=== PATIENT | female | born 1990 | race Caucasian/White ===

== ENCOUNTER 2016-08-19 19:35 | Emergency (ER) | payer OTHER ==
[~2016-08-19] VITALS: Ht 152.4 cm; Wt 70.0 kg
[~2016-08-19 19:35] MED LIST: AMOX1TAB43 PO
[2016-08-19 19:39] VITALS: BP 153/88; PULSE 135; TEMP 37; O2SAT 100; Ht 152.4 cm; Wt 70.0 kg
[2016-08-19] MEDS ORDERED: AZITHROMYCIN 250 MG TAB PO STA (20:12)
[2016-08-19] MEDS ORDERED: CEFTRIAXONE SOD 350MG/ML 1 GM VIAL IM STA (20:12)
--- NOTE | 2016-08-19 20:16 | EMERGENCY ROOM VISIT NOTE ---
History First contact with patient: 20:05 Chief Complaint: STD FEMALE Stated Complaint: STD History of Present Illness The patient is a 26 year old female who presents to the Emergency Room with complaints of STD exposure. The patient states her significant other was diagnosed with and treated for gonorrhea and chlamydia on Saturday. She states she has had vaginal discharge. She denies any fevers. She denies any abdominal pain. She denies any dysuria, urgency or frequency. She reports a history of Chlamydia approximately 5 years ago. She denies any other symptoms. Review of Systems A 10 system review of systems was completed with positives and pertinent negatives listed in the HPI. Past Medical/Surgical History Medical Problems: (1) Asthma, mild intermittent (2) Narcotic addiction Surgical Problems: (1) S/P tonsillectomy Family History Cancer Social History Smoking Status: Current Every Day Smoker Alcohol Use: none Drug Use: heroin, marijuana, other Marital Status: Housing Status: lives with family Occupation Status: employed Current/Historical Medications Scheduled Amoxicillin & Pot Clavulanate (Amoxicillin/Clavulanate P), 875 MG PO BIDM Allergies Coded Allergies: Apricot (Verified Allergy, Severe, 08/10/15) Cat Dander (Verified Allergy, Severe, ., 08/10/15) Apple (Verified Allergy, Intermediate, Swells from raw apples, 08/10/15) Physical Exam Vital Signs Date Time Temp Pulse Resp B/P Pulse Ox O2 Delivery O2 Flow Rate FiO2 08/19/16 19:39 37.0 135 18 153/88 100 Room Air Physical Exam VITALS: Vitals are noted on the nurse's note and reviewed by myself. Vital signs stable. GENERAL: This is a 26-year-old female, in no acute distress, nondiaphoretic, well-developed well-nourished. SKIN: The skin was without rashes, erythema, edema, or bruising. There is no tenting of the skin. Capillary reflex less than 2 seconds. HEAD: Normocephalic atraumatic. EARS: External ears are normal in appearance EYES: Pupils equal round and reactive to light and accommodation. Conjunctivae without injection, sclerae without icterus. Extraocular movements intact. NOSE: Patent, turbinates without inflammation or discharge. MOUTH: Mucous membranes moist. Tonsils are not enlarged. Pharynx without erythema or exudate. Uvula midline. Airway patent. Tongue does not deviate. NECK: Supple without nuchal rigidity. No lymphadenopathy. No thyromegaly. Cervical spine is nontender. No JVD. HEART: Regular rate and rhythm without murmurs gallops or rubs. LUNGS: Clear to auscultation bilaterally without wheezes, rales or rhonchi. No dullness to percussion. No retractions or accessory muscle use. ABDOMEN: Positive bowel sounds x 4. Soft, nontender, without masses or organomegaly. : The external genitalia is normal in appearance. There is copious whitest discharge. There is mild cervicitis.is no cervical motion tenderness. There is no adnexal mass or tenderness. MUSCULOSKELETAL: There is no Muscle atrophy, erythema, or edema noted. Full range of motion without joint tenderness in all extremities. No tenderness to palpation. Normal gait. Strength 5/5 throughout. NEURO: Patient was alert and oriented to person place and time. No focal neurological deficits. Medical Decision & Procedures Laboratory Results Test 08/19/16 20:15 Date/Time Source Procedure Growth Status 08/19/16 20:15 Vaginal Swab Trichomonas Preparation - Final Complete Medications Administered Medications (Trade) Dose Ordered Sig/Jared Route Start Time Stop Time Status Last Admin Dose Admin Azithromycin (Zithromax Tab) 1,000 mg NOW STAT PO 08/19/16 20:12 08/19/16 20:14 DC 08/19/16 20:28 1,000 MG Ceftriaxone Sodium (Rocephin Im) 250 mg NOW STAT IM 08/19/16 20:12 08/19/16 20:14 DC 08/19/16 20:28 250 MG ED Course The patient was seen and examined. She is afebrile. She is nontoxic in appearance. The patient has a known exposure to gonorrhea and chlamydia. She has copious whitest discharge on examination. Pelvic cultures were obtained. She will empirically be treated with 250 mg IM Rocephin and 1 g oral Zithromax. The patient does not have any cervical motion tenderness, adnexal tenderness or adnexal mass on examination. She was advised that we will contact her if the results of the cultures indicate a need for change in treatment. She should return to the ER with any worsening symptoms. Medical Decision DIFFERENTIAL DIAGNOSIS: Pelvic inflammatory disease, ovarian cyst, ovarian torsion, ovarian rupture, , ectopic , endometriosis, endometritis, urinary tract infection, ruptured ovarian cyst, tubo-ovarian abscess, among others. Impression Primary Impression: Exposure to STD Departure Information Dispostion Home / Self-Care Condition GOOD Referrals No Doctor, Assigned (PCP) Patient Instructions Chlamydia, ED Gonorrhea Female, My [facility] Additional Instructions We will contact you if the culture results indicate the need for change in treatment You may contact the emergency department [phone] to check on the culture results in 5-7 days Return with any worsening symptoms
[2016-08-23 01:11] LABS: CHLAMYDIA TRACH RNA*** NOT DETECTED (NOT DETECTED); GC (NEIS GONORRHOEAE)RNA** NOT DETECTED (NOT DETECTED)
== END 2016-08-19 20:48 | disposition home or self-care (01) ==
LOC: C.EDB 19:36 → C.EDD 20:48
DX: Z20.2 Contact with and (suspected) exposure to infections with a predominantly sexual mode of transmission (principal); N89.8 Other specified noninflammatory disorders of vagina; J45.20 Mild intermittent asthma, uncomplicated; F17.200 Nicotine dependence, unspecified, uncomplicated

== ENCOUNTER 2016-10-08 03:05 | Emergency (ER) | payer OTHER ==
[~2016-10-08] VITALS: Ht 149.9 cm; Wt 72.5 kg
[2016-10-08 03:07] VITALS: TEMP 37; Ht 149.9 cm; Wt 72.5 kg
[2016-10-08] MEDS ORDERED: GI COCKTAIL PO ONE (03:30)
[2016-10-08] MEDS ORDERED: PANTOprazole INJ 40 MG in SYRINGE 0 ML IV ONE (03:30)
[2016-10-08] MEDS ORDERED: SODIUM CHLORIDE 0.9% 1000ML 1,000 ML IV ONE (03:30)
[2016-10-08] MEDS ORDERED: LIDOCAINE HCL 2% VISC SOLN 20 ML UDC ONE (03:42)
[2016-10-08] MEDS ORDERED: ALUMINUM/MAGNESIUM SUSP 30 ML UDC ONE (03:42)
[2016-10-08] MEDS ORDERED: CALC500C3 PO (03:49)
[2016-10-08 03:55] LABS: BASO % 0.1 %; BASO ABS # 0.02 K/uL (0-0.2); COMPLETE YES; EOS % 2.3 %; HEMATOCRIT 41.1 % (37-47); IG% 0.2 %; LYMPH % 9.8 %; LYMPH ABS # 1.34 K/uL (1.2-3.4); MEAN CELL VOLUME 90.5 fL (80-100); MEAN CORPUSCULAR HEMOGLOBIN 30.4 pg (25-34); MEAN CORPUSCULAR HGB CONC 33.6 g/dl (32-36); MEAN PLATELET VOLUME 10.3 fL (7.4-10.4); MONO % 7.5 %; NEUT % 80.1 %; PLATELET COUNT 215 K/uL (130-400); RED BLOOD COUNT 4.54 M/uL (4.2-5.4); WHITE BLOOD COUNT 13.66 K/uL (4.8-10.8)
[2016-10-08 04:22] LABS: BUN/CREATININE RATIO 19.4 (10-20); CALCIUM 8.4 mg/dl (8.5-10.1); CREATININE 0.68 mg/dl (0.60-1.20); POTASSIUM 4.2 mmol/L (3.5-5.1)
[2016-10-08] MEDS ORDERED: KETOROLAC TROMETHAMINE 30 MG/ML VIAL IV STA (06:00)
[2016-10-08] MEDS ORDERED: ACETAMINOPHEN 500 MG TAB PO STA (06:00)
[2016-10-08 06:06] LABS: URINE APPEARANCE CLEAR (CLEAR); URINE BILIRUBIN NEG (NEG); URINE COLOR YELLOW; URINE NITRITE NEG (NEG); URINE SPECIFIC GRAVITY 1.014 (1.000-1.030); UROBILINOGEN NEG (NEG); ZZUR CULT IF INDIC CLEAN CATCH NO
[2016-10-08 06:16] LABS: MANUAL MICROSCOPIC REQUIRED? NO; REVIEW REQ? NO
[2016-10-08] MEDS ORDERED: CLINDAMYCIN HCL 150 MG CAP PO ONE (06:30)
[2016-10-08] MEDS ORDERED: PANT40TA PO (06:33)
--- NOTE | 2016-10-08 06:37 | DIAGNOSTIC IMAGING REPORT ---
BILIARY ULTRASOUND CLINICAL HISTORY: Epigastric pain. Elevated LFTs. COMPARISON STUDY: CT scan dated 07/29/2013 FINDINGS: The pancreas appear normal as visualized. The liver appear normal as visualized. There was no ductal dilatation. The common bile duct measured 4 mm. There is no right-sided hydronephrosis. No gallstones were visualized. There was a small amount of sludge within the gallbladder. IMPRESSION: Small amount of sludge in the gallbladder. No gallstones identified. No evidence of ductal dilatation. Electronically signed by: Philip Fox M.D. 10/08/2016 6:35 AM Dictated Date/Time: 10/08/2016 6:34 AM
[2016-10-08 06:39] VITALS: BP 108/68; PULSE 78; O2SAT 98
--- NOTE | 2016-10-08 06:46 | DIAGNOSTIC IMAGING REPORT ---
CHEST ONE VIEW PORTABLE CLINICAL HISTORY: Atypical chest pain and epigastric pain. COMPARISON STUDY: 10/29/2015 FINDINGS: The cardiac and mediastinal contours are normal. There is no evidence of focal pulmonary consolidation. There is no evidence of failure. No pleural effusions are visualized.[ No free intraperitoneal air is visualized. IMPRESSION: No active disease in the chest. Electronically signed by: Philip Fox M.D. 10/08/2016 6:44 AM Dictated Date/Time: 10/08/2016 6:44 AM
--- NOTE | 2016-10-09 08:33 | EMERGENCY ROOM VISIT NOTE ---
History First contact with patient: 03:14 Chief Complaint: OTHER COMPLAINT Stated Complaint: CHEST PAINS,SEVERE HEARTBURN,ACID REFLUX History of Present Illness The patient is a 26 year old female who presents to the Emergency Room with complaints of substernal chest pain radiating into her throat. The patient states that she had difficulty sleeping tonight because of her symptoms. She does have a history of GERD and has not taken anything [id number] for her symptoms. She has a family history of gallbladder disease, and is concerned that her symptoms may be related to this. Food and drink does worsen her symptoms. The patient rates her discomfort a 6/10. Additionally the patient was seen for an unrelated complaint here in the ER about 5 weeks ago. She had vaginal cultures at that time that did return with Gardnerella and Staph. We have been unable to get in touch with her, but she has a prescription for clindamycin at her pharmacy waiting for her to begin treatment. Review of Systems More than 10 systems were reviewed and otherwise negative with the exception of history of present illness. Past Medical/Surgical History Medical Problems: (1) Asthma, mild intermittent (2) Narcotic addiction Surgical Problems: (1) S/P tonsillectomy Family History Cancer Social History Smoking Status: Former Smoker Alcohol Use: none Drug Use: heroin, marijuana, other Marital Status: Housing Status: lives with family Occupation Status: employed Current/Historical Medications Scheduled Pantoprazole (Protonix), 40 MG PO DAILY Scheduled PRN Calcium Carbonate (Tums), 1-2 TABS PO UD PRN for Heartburn Allergies Coded Allergies: Apricot (Verified Allergy, Severe, 10/08/16) Cat Dander (Verified Allergy, Severe, ., 10/08/16) Apple (Verified Allergy, Intermediate, Swells from raw apples, 10/08/16) Physical Exam Vital Signs Date Time Temp Pulse Resp B/P Pulse Ox O2 Delivery O2 Flow Rate FiO2 10/08/16 06:39 78 18 108/68 98 Room Air 10/08/16 06:14 112 18 104/75 98 Room Air 10/08/16 06:00 116 18 116/65 95 Room Air 10/08/16 04:53 102 18 105/58 98 Room Air 10/08/16 03:07 37.0 111 20 121/81 97 Room Air Pain Rating (0-10): 2.0 Physical Exam VITALS: Vitals are noted on the nurse's note and reviewed by myself. Vital signs stable. GENERAL: Well-developed, well-nourished, white female, who is in no acute distress and resting comfortably. Patient is cooperative with the examination. HEAD: Normocephalic atraumatic. NECK: Supple without nuchal rigidity. No lymphadenopathy. No thyromegaly. Cervical spine is nontender. HEART: Regular rate and rhythm without murmurs gallops or rubs. LUNGS: Clear to auscultation bilaterally without wheezes, rales or rhonchi. No retractions or accessory muscle use. ABDOMEN: Positive normal bowel sounds x 4. Soft, nontender, without masses or organomegaly. No guarding or rebound tenderness. MUSCULOSKELETAL: No muscle atrophy, erythema, or edema noted. Full range of motion without joint tenderness in all extremities. Medical Decision & Procedures ER Provider Diagnostic Interpretation: CHEST ONE VIEW PORTABLE CLINICAL HISTORY: Atypical chest pain and epigastric pain. COMPARISON STUDY: 10/29/2015 FINDINGS: The cardiac and mediastinal contours are normal. There is no evidence of focal pulmonary consolidation. There is no evidence of failure. No pleural effusions are visualized.[ No free intraperitoneal air is visualized. IMPRESSION: No active disease in the chest. [~ rep ct add3]] BILIARY ULTRASOUND CLINICAL HISTORY: Epigastric pain. Elevated LFTs. COMPARISON STUDY: CT scan dated 07/29/2013 FINDINGS: The pancreas appear normal as visualized. The liver appear normal as visualized. There was no ductal dilatation. The common bile duct measured 4 mm. There is no right-sided hydronephrosis. No gallstones were visualized. There was a small amount of sludge within the gallbladder. IMPRESSION: Small amount of sludge in the gallbladder. No gallstones identified. No evidence of ductal dilatation. Laboratory Results 10/08/16 03:35 Red Blood Count 4.54, Mean Corpuscular Volume 90.5, Mean Corpuscular Hemoglobin 30.4, Mean Corpuscular Hemoglobin Concent 33.6, Mean Platelet Volume 10.3, Neutrophils (%) (Auto) 80.1, Lymphocytes (%) (Auto) 9.8, Monocytes (%) (Auto) 7.5, Eosinophils (%) (Auto) 2.3, Basophils (%) (Auto) 0.1, Neutrophils # (Auto) 10.94, Lymphocytes # (Auto) 1.34, Monocytes # (Auto) 1.02, Eosinophils # (Auto) 0.31, Basophils # (Auto) 0.02 10/08/16 03:35 Test 10/08/16 00:00 10/08/16 03:35 10/08/16 03:44 Urine Color YELLOW Urine Appearance CLEAR (CLEAR) Urine pH 5.0 (4.5-7.5) Urine Specific [place] 1.014 (1.000-1.030) Urine Protein NEG (NEG) Urine Glucose (UA) NEG (NEG) Urine Ketones NEG (NEG) Urine Occult Blood NEG (NEG) Urine Nitrite NEG (NEG) Urine Bilirubin NEG (NEG) Urine Urobilinogen NEG (NEG) Urine Leukocyte Esterase NEG (NEG) Urine Test NEG (NEG) White Blood Count 13.66 K/uL (4.8-10.8) Red Blood Count 4.54 M/uL (4.2-5.4) Hemoglobin 13.8 g/dL (12.0-16.0) Hematocrit 41.1 % (37-47) Mean Corpuscular Volume 90.5 fL (80-100) Mean Corpuscular Hemoglobin 30.4 pg (25-34) Mean Corpuscular Hemoglobin Concent 33.6 g/dl (32-36) Platelet Count 215 K/uL (130-400) Mean Platelet Volume 10.3 fL (7.4-10.4) Neutrophils (%) (Auto) 80.1 % Lymphocytes (%) (Auto) 9.8 % Monocytes (%) (Auto) 7.5 % Eosinophils (%) (Auto) 2.3 % Basophils (%) (Auto) 0.1 % Neutrophils # (Auto) 10.94 K/uL (1.4-6.5) Lymphocytes # (Auto) 1.34 K/uL (1.2-3.4) Monocytes # (Auto) 1.02 K/uL (0.11-0.59) Eosinophils # (Auto) 0.31 K/uL (0-0.5) Basophils # (Auto) 0.02 K/uL (0-0.2) RDW Standard Deviation 45.4 fL (36.4-46.3) RDW Coefficient of Variation 13.8 % (11.5-14.5) Immature Granulocyte % (Auto) 0.2 % Immature Granulocyte # (Auto) 0.03 K/uL (0.00-0.02) Anion Gap 10.0 mmol/L (3-11) Est Creatinine Clear Calc Drug Dose 108.7 ml/min Estimated GFR () 139.9 Estimated GFR (Non- 120.7 BUN/Creatinine Ratio 19.4 (10-20) Calcium Level 8.4 mg/dl (8.5-10.1) Total Bilirubin 0.3 mg/dl (0.2-1) Aspartate Amino Transf (AST/SGOT) 126 U/L (15-37) Alanine Aminotransferase (ALT/SGPT) 213 U/L (12-78) Alkaline Phosphatase 45 U/L (45-117) Total Protein 7.5 gm/dl (6.4-8.2) Albumin 3.8 gm/dl (3.4-5.0) Globulin 3.7 gm/dl (2.5-4.0) Albumin/Globulin Ratio 1.0 (0.9-2) Lipase 155 U/L (73-393) Bedside Troponin I 0.000 ng/ml (0-0.045) Medications Administered Medications (Trade) Dose Ordered Sig/Jared Route Start Time Stop Time Status Last Admin Dose Admin Pantoprazole Sodium 40 mg/ Syringe 10 ml @ 5 mls/min NOW ONCE IV 10/08/16 03:30 10/08/16 03:31 DC 10/08/16 03:55 5 MLS/MIN Sodium Chloride (Nss 1000ml) 1,000 ml @ 999 mls/hr Q1H1M ONCE IV 10/08/16 03:30 10/08/16 04:30 DC 10/08/16 03:54 999 MLS/HR Al Hydroxide/Mg Hydroxide (Maalox Susp) 30 ml STK-MED ONCE .ROUTE 10/08/16 03:42 10/08/16 03:45 DC 10/08/16 03:55 30 ML Lidocaine HCl (Viscous Lidocaine 2% Soln) 20 ml STK-MED ONCE .ROUTE 10/08/16 03:42 10/08/16 03:45 DC 10/08/16 03:55 20 ML Ketorolac Tromethamine (Toradol Inj) 30 mg NOW STAT IV 10/08/16 06:00 10/08/16 06:01 DC 10/08/16 06:15 30 MG Acetaminophen (Tylenol Tab) 1,000 mg NOW STAT PO 10/08/16 06:00 10/08/16 06:01 DC 10/08/16 06:15 1,000 MG Clindamycin HCl (Cleocin Cap) 300 mg NOW ONCE PO 10/08/16 06:30 10/08/16 06:31 DC 10/08/16 06:34 300 MG ED Course Physical exam and history were performed. Nursing notes and EMR were reviewed. Patient appears to have epigastric abdominal/substernal chest pain. IV access was established and labs were obtained. The patient was given a GI cocktail as well as IV Protonix. X-ray was performed. The patient blood work is as above and was reviewed. She does have a mildly elevated white blood cell count of 13,000. She is not significantly anemic. Her lipase is not diagnostic. Troponin x1 is negative. LFTs are elevated for the patient, and while the patient has had some elevated LFTs in the past, she has not had them elevated this level recently. Because of this I did elect to perform an ultrasound. The patient was then given additional pain medication. The patient ultrasound does show some sludge but no cholecystitis. On repeat abdominal exam the patient continued to be without significant tenderness. She did feel better after medication here in the department. Clinically I suspect that her presenting symptoms today are most related with GERD. Her elevated white blood cell count may be due to her vaginal vault infection. She was given clindamycin by mouth here in the department and instructions to pick out hand her antibiotic from the pharmacy this morning. The patient should follow with her primary care physician with any new, worsening, or concerning symptoms. She voiced understanding and rated her discomfort a 0/10 at the time of departure. The chart was completed utilizing [employer] Speech Voice Recognition Software. Grammatical errors, random word insertions, pronoun errors, and incomplete sentences are an occasional consequence of this system due to software limitations, ambient noise, and hardware issues. Any formal questions or concerns about the content, text, or information contained within the body of this dictation should be directly addressed to the provider for clarification. . Medical Decision Differential diagnosis: Etiologies such as appendicitis, diverticulitis, PUD, biliary pathology, UTI, pancreatitis, obstruction, mesenteric ischemia, aortic pathology, infections, inflammatory bowel disease, renal colic, as well as others were entertained. Impression Primary Impression: Epigastric abdominal pain Departure Information Dispostion Home / Self-Care Condition GOOD Prescriptions Pantoprazole (Protonix) 40 Mg Tab 40 MG PO DAILY for 14 Days, #14 TAB Prov: Garrett Nugent PA-C 10/08/16 Forms HOME CARE DOCUMENTATION FORM, IMPORTANT VISIT INFORMATION Patient Instructions My [facility] Additional Instructions You were seen and evaluated today on an emergency basis only. This is not a substitute for, or an effort to provide, complete comprehensive medical care. It is not possible to recognize and treat all injuries or illnesses in a single emergency department visit. For this reason it is recommended that you followup with your primary care physician this week for ongoing care and evaluation. Take Protonix 40 mg daily for the next 2 weeks. For baseline pain relief you may alternate ibuprofen and acetaminophen every 4 hours for pain control. Take 600 mg ibuprofen (Advil) and then 4 hours later take 1000 mg acetaminophen (Tylenol). Do not take more than 3000 mg acetaminophen in a single day. You have antibiotics at the pharmacy that we recommended you pick out hand today and begin. You are welcome to return to the emergency department anytime with new, worsening, or concerning symptoms.
== END 2016-10-08 06:43 | disposition home or self-care (01) ==
LOC: C.EDB 03:06 → C.EDA 06:43
DX: R07.89 Other chest pain (principal); R10.13 Epigastric pain; Z87.891 Personal history of nicotine dependence; F12.21 Cannabis dependence, in remission; K21.9 Gastro-esophageal reflux disease without esophagitis

== ENCOUNTER 2017-06-08 23:20 | Emergency (ER) | payer OTHER ==
[~2017-06-08] VITALS: Ht 149.9 cm; Wt 77.3 kg
[~2017-06-08 23:20] MED LIST changes: -AMOX1TAB43 PO; +CALC500C3 PO
[2017-06-08 23:25] VITALS: TEMP 37; Ht 149.9 cm; Wt 77.3 kg
[2017-06-08] MEDS ORDERED: LIDOCAINE/EPINEPH/TETRACAINE 1 EA SYR ONE (23:33)
[2017-06-08] MEDS ORDERED: LIDOCAINE HCL 1% 20 ML VIAL ONE (23:34)
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
[2017-06-09 00:57] VITALS: BP 126/80; PULSE 78; O2SAT 98
== END 2017-06-09 00:58 | disposition home or self-care (01) ==
LOC: C.EDB 23:21
DX: S01.81XA Laceration without foreign body of other part of head, initial encounter (principal); T74.11XA Adult physical abuse, confirmed, initial encounter; Y04.0XXA Assault by unarmed brawl or fight, initial encounter; Y07.03 Male partner, perpetrator of maltreatment and neglect; J45.20 Mild intermittent asthma, uncomplicated; F17.200 Nicotine dependence, unspecified, uncomplicated; Z90.89 Acquired absence of other organs

== ENCOUNTER 2021-03-13 06:14 | Inpatient (IN) ==
[2021-03-13] MEDS ORDERED: MULTI-VITAMIN INFUSION 10 ML, THIAMINE HCL 100 MG, FOLIC ACID 1 MG in SODIUM CHLORIDE 0... IV ONE (06:47)
[2021-03-13] MEDS ORDERED: LORazepam 2 MG/4 ML VIAL IV STA ×2 (06:47→09:52)
[2021-03-13] MEDS ORDERED: ONDANSETRON INJ 2 MG/ML 2 ML VIAL IV STA (06:47)
[2021-03-13] MEDS ORDERED: FAMOTIDINE 20MG IV PUSH 20 MG/5 ML SYR IV STA (06:47)
[2021-03-13] MEDS ORDERED: THIAMINE HCL 200 MG in SODIUM CHLORIDE 0.9% 50 ML IV STA (06:47)
--- NOTE | 2021-03-13 06:53 | Emergency Department Note ---
Impression & Plan Alcohol withdrawal, Alcoholic pancreatitis, Hypokalemia, Hypophosphatemia, Hypomagnesemia ED Provider Note NAME: FLAKO NOEL AGE: 30 SEX: F ARRIVES VIA: Walk-In INFORMANT: Patient, ED PROVIDER(S): Ja Alcaraz MD CHIEF COMPLAINT: Alcohol withdrawal, n/v. PLAN: Disposition: Admit. MEDICAL DECISION MAKING: The patient is a 30 y/o woman with a pmhx of alcohol dependence and h/o alcohol withdrawal who presents to the emergency department for evaluation and treatment of alcohol withdrawal. She reports her last drink was yesterday at 3pm and has been having nausea and vomiting that developed today. She reports she has been drinking heavily (1 liter of hard liquor daily) for the past two weeks after being sober for over a year. She reports she has been experiencing tremendous stress over the past six months and that this triggered her to turn to alcohol again. Prior to her withdrawal she denies recent illness including fever, cough, congestion. She denies urinary symptoms. On arrival the patient is uncomfortable and anxious but in NAD, AF, HR 160s and otherwise VSS. She appears clinically dry. She is moderately tremulous and diaphoretic. Abdomen with mild epigastric tenderness. EKG without overt acute ischemia. WBC, 11.3, nonspecific. H/H, platelets wnl. Chemistry with bicarb of 21 and Agap 16. Potassium 2.8, Mg 1.5 and phosphorus 1.9 with repletion initiated. INR wnl. LFTs elevated from baseline, nonspecific. Lipase 1500. UA with nitrites, WBC and bacteria, albeit with epithelial cells. Given no sx will defer treatment to admitting team. Etoh level 84. Covid-[address] abd/pelvis shows evidence of pancreatitis. Patient somewhat improved after repeat doses of IV ativan and antiemetics in addition to thiamine, IVF hydration with banana bag and D5 NSS for possible early component of alcoholic ketoacidosis given she reports minimal oral intake other than etoh for days. She agrees with plan for admission. Case was discussed with Bruce Hardy, with Bruce Cesar hospitalist who will evaluate the patient for admission. Triage Nursing notes reviewed and agree them. Prior medical records reviewed Vital Signs: reviewed and remarkable for tachycardia. Differential diagnosis: Overdose, toxicologic, infection, hypoglycemia, electrolyte abnormalities, cardiac sources, intracerebral event, neurologic, trauma, as well as other pathologies. ER treatment provided: See below. Diagnostics interpreted by me: ECG: Sinus tachycardia, 127 bpm, no ectopy, TWA, no overt ST elevation or depression. Cardiac Monitoring: An order for continuous cardiac monitoring was placed and demonstrated sinus tachycardia, 127 bpm, no ectopy. Laboratory studies: See below Imaging studies: See below Consultation(s): Bruce Hardy, with Dr. Ochoa [facility] hospitalist who will evaluate the patient for admission. HPI: The patient is a 30 y/o woman with a pmhx of alcohol dependence and h/o alcohol withdrawal who presents to the emergency department for evaluation and treatment of alcohol withdrawal. She reports her last drink was yesterday at 3pm and has been having nausea and vomiting that developed today. She reports she has been drinking heavily (1 liter of hard liquor daily) for the past two weeks after being sober for over a year. She reports she has been experiencing tremendous stress over the past six months and that this triggered her to turn to alcohol again. Prior to her withdrawal she denies recent illness including fever, cough, congestion. She denies urinary symptoms. ROS: See above HPI for pertinent positives & negatives. A total of 10 systems r eviewed and were otherwise negative. PAST MEDICAL HISTORY:See Below PAST SURGICAL HISTORY:See Below FAMILY HISTORY:See Below SOCIAL HISTORY:See Below HOME MEDICATIONS:See Below ALLERGIES:See Below VITALS:See Below PHYSICAL EXAMINATION: GENERAL: Awake, alert, uncomfortable/anxious-appearing, in no distress HENT: Normocephalic, atraumatic. Oropharynx dry/cracked mm. EYES: Normal conjunctiva. Sclera non-icteric. NECK: Supple. No nuchal rigidity. FROM. No JVD. RESPIRATORY: Clear to auscultation. CARDIAC: Tachycardic rate, normal rhythm. Extremities warm and well perfused. Pulses equal. ABDOMEN: Soft, non-distended. Mild epigastric tenderness to palpation. No rebound or guarding. No masses. RECTAL: Deferred. MUSCULOSKELETAL: Chest examination reveals no tenderness. The back is sym metrical on inspection without obvious abnormality. There is no CVA tenderness to palpation. No joint edema. LOWER EXTREMITIES: Calves are equal size bilaterally and non-tender. No edema. No discoloration. NEURO: No focal sensory or motor deficits noted. Moderately tremulous and diaphoretic. Intact finger to nose. SKIN: No rash or jaundice noted. ED COURSE: Critical Care: I have personally spent greater than 35 minutes of critical care time in the direct management of this patient. This includes bedside care, interpretation of diagnostic studies, and testing, discussion with consultants, patient, and family members, and other required patient management activities. This 35 minutes is in excess of all separately billable procedures. aJ Alcaraz MD Past Med/Surg History Medical History Alcohol abuse Asthma, mild intermittent Closed right ankle fracture Hepatitis C Narcotic addiction Surgical History S/P tonsillectomy Family History Mother Breast cancer Social History Smoking Status: Former smoker Tobacco Type: Cigarettes Hx Alcohol Use: Yes Alcohol type: hard liquor Hx Substance Use: Yes Preferred Language: Kazakh Communication Ability: Effective Beliefs That Will Affect Care: None Current Living Situation: Alone Other Information That Helps Us Care for You: No Feels Safe at Home: Yes Safety Concerns: Feels Safe At This Time Allergies Allergies Allergy/AdvReac Type Severity Reaction Status Date / Time apple Allergy Intermediate RAW Verified 03/13/21 06:55 APPLES--MOUTH SWELLS, ITCHY TONGUE, HIVES apricot Allergy Intermediate RAW Verified 03/13/21 06:55 APRICOTS--MOUTH SWELLS, ITCHY TONGUE, HIVES cat dander Allergy Intermediate MOUTH Verified 03/13/21 06:55 SWELLS, ITCHY TONGUE, HIVES Home Meds Home Medications Medication Instructions Recorded Confirmed No Known Home Medications 03/13/21 03/13/21 Results & Data (ED) Vital Signs Vital Signs - 24 hr 03/13/21 06:17 03/13/21 06:25 03/13/21 07:05 Temperature 36.8 C Temperature Source Temporal Artery Scan Pulse Rate 165 H Pulse Rate [Left Finger] 135 H Pulse Rhythm [Left Finger] Regular Pulse Strength [Left Finger] Normal Respiratory Rate 18 Respiratory Effort / Characteristics Non-Labored Spontaneous Respiratory Depth Normal Blood Pressure [Right Arm] 142/112 H Blood Pressure Mean [Right Arm] 122 Blood Pressure Position [Right Arm] Sitting Pulse Oximetry 96 99 97 Oxygen Delivery Method Room Air Room Air Room Air Sepsis Recent Fever Within 48 Hours No Sepsis New/Unexplained Change in Mental Status No Sepsis Action Taken by Nursing No Action Required 03/13/21 08:14 03/13/21 10:00 Temperature Temperature Source Pulse Rate Pulse Rate [Left Finger] 143 H 130 H Pulse Rhythm [Left Finger] Pulse Strength [Left Finger] Respiratory Rate 18 18 Respiratory Effort / Characteristics Respiratory Depth Blood Pressure [Right Arm] 136/87 129/87 Blood Pressure Mean [Right Arm] 103 101 Blood Pressure Position [Right Arm] Pulse Oximetry 97 98 Oxygen Delivery Method Room Air Room Air Sepsis Recent Fever Within 48 Hours Sepsis New/Unexplained Change in Mental Status Sepsis Action Taken by Nursing Laboratory Data Attestation: I reviewed the patient's lab results. Result diagrams: 03/13/21 16:53 03/13/21 16:53 Lab Results 03/13/21 03/13/21 03/13/21 Range/Units 06:40 06:40 06:40 WBC 11.34 H (4.8-10.8) K/uL RBC 5.09 (4.2-5.4) M/uL Hgb 15.8 (12.0-16.0) g/dL Hct 45.6 (37-47) % MCV 89.6 (80-100) fL MCH 31.0 (25-34) pg MCHC 34.6 (32-36) g/dL RDW Std Deviation 43.9 (36.4-46.3) fL RDW Coeff of Tatiana 13.3 (11.5-14.5) % Plt Count 199 (130-400) K/uL MPV 10.8 H (7.4-10.4) fL Immature Gran % (Auto) 0.2 % Neut % (Auto) 57.7 % Lymph % (Auto) 32.4 % Edmunds % (Auto) 7.0 % Eos % (Auto) 2.4 % Baso % (Auto) 0.3 % Neut # (Auto) 6.56 H (1.4-6.5) K/uL Lymph # (Auto) 3.67 H (1.2-3.4) K/uL Edmunds # (Auto) 0.79 H (0.11-0.59) K/uL Eos # (Auto) 0.27 (0-0.5) K/uL Baso # (Auto) 0.03 (0-0.2) K/uL Immature Gran # (Auto) 0.02 (0.00-0.02) K/uL PT (9.0-12.0) Seconds INR (0.9-1.1) Sodium 138 (136-145) mmol/L Potassium 2.8 L (3.5-5.1) mmol/L Chloride 101 (98-107) mmol/L Carbon Dioxide 21 (21-32) mmol/L Anion Gap 16.0 H (3-11) BUN 9 (7-18) mg/dl Creatinine 0.84 (0.6-1.2) mg/dl Est Cr Clr Drug Dosing 97.4 ml/min Est GFR ( Amer) 108.1 ml/min Est GFR (Non-Af Amer) 93.3 ml/min BUN/Creatinine Ratio 10.2 (10-20) Glucose 109 H (70-99) mg/dl Calcium 9.5 (8.5-10.1) mg/dl Phosphorus 1.9 L (2.5-4.9) mg/dl Magnesium 1.5 L (1.8-2.4) mg/dl Total Bilirubin 1.2 H (0.2-1) mg/dl Direct Bilirubin 0.3 H (0-0.2) mg/dl AST 199 H (15-37) U/L ALT 160 H (12-78) U/L Alkaline Phosphatase 64 (45-117) U/L Total Protein 7.7 (6.4-8.2) gm/dl Albumin 3.8 (3.4-5.0) gm/dl Globulin 3.9 (2.5-4.0) gm/dl Albumin/Globulin Ratio 1.0 (0.9-2) Lipase 1588 H (73-393) U/L HCG, Qual Negative (Negative) Urine Color Urine Appearance (Clear) Urine pH (4.5-7.5) Ur Specific [place] (1.000-1.030) Urine Protein (Negative) Urine Glucose (UA) (Negative) Urine Ketones (Negative) Urine Blood (Negative) Urine Nitrite (Negative) Urine Bilirubin (Negative) Urine Urobilinogen (Negative) Ur Leukocyte Esterase (Negative) Urine WBC (Auto) (0-5) /hpf Urine RBC (Auto) (0-4) /hpf U Hyaline Cast (Auto) (0-5) /lpf U Epithel Cells (Auto) (0-5) /lpf Urine Bacteria (Auto) (Negative) Granular Casts (0) /lpf Urine Opiates Screen (Neg) Ur Methadone, Qual (Neg) Urine Barbiturates (Neg) Ur Phencyclidine (PCP) (Neg) U Amphetamin/Meth Scrn (Neg) MDMA (Ecstasy) Screen (Neg) U Benzodiazepines Scrn (Neg) Ur Cocaine Metabolite (Neg) U Marijuana (THC) Screen (Neg) Ethyl Alcohol mg/dL (0-3) mg/dl COVID-19 Eval Order SARS-CoV-2 (PCR) (Negative) 03/13/21 03/13/21 03/13/21 Range/Units 06:40 07:04 07:04 WBC (4.8-10.8) K/uL RBC (4.2-5.4) M/uL Hgb (12.0-16.0) g/dL Hct (37-47) % MCV (80-100) fL MCH (25-34) pg MCHC (32-36) g/dL RDW Std Deviation (36.4-46.3) fL RDW Coeff of Tatiana (11.5-14.5) % Plt Count (130-400) K/uL MPV (7.4-10.4) fL Immature Gran % (Auto) % Neut % (Auto) % Lymph % (Auto) % Edmunds % (Auto) % Eos % (Auto) % Baso % (Auto) % Neut # (Auto) (1.4-6.5) K/uL Lymph # (Auto) (1.2-3.4) K/uL Edmunds # (Auto) (0.11-0.59) K/uL Eos # (Auto) (0-0.5) K/uL Baso # (Auto) (0-0.2) K/uL Immature Gran # (Auto) (0.00-0.02) K/uL PT 10.0 (9.0-12.0) Seconds INR 1.0 (0.9-1.1) Sodium (136-145) mmol/L Potassium (3.5-5.1) mmol/L Chloride (98-107) mmol/L Carbon Dioxide (21-32) mmol/L Anion Gap (3-11) BUN (7-18) mg/dl Creatinine (0.6-1.2) mg/dl Est Cr Clr Drug Dosing ml/min Est GFR ( Amer) ml/min Est GFR (Non-Af Amer) ml/min BUN/Creatinine Ratio (10-20) Glucose (70-99) mg/dl Calcium (8.5-10.1) mg/dl Phosphorus (2.5-4.9) mg/dl Magnesium (1.8-2.4) mg/dl Total Bilirubin (0.2-1) mg/dl Direct Bilirubin (0-0.2) mg/dl AST (15-37) U/L ALT (12-78) U/L Alkaline Phosphatase (45-117) U/L Total Protein (6.4-8.2) gm/dl Albumin (3.4-5.0) gm/dl Globulin (2.5-4.0) gm/dl Albumin/Globulin Ratio (0.9-2) Lipase (73-393) U/L HCG, Qual (Negative) Urine Color Urine Appearance (Clear) Urine pH (4.5-7.5) Ur Specific [place] (1.000-1.030) Urine Protein (Negative) Urine Glucose (UA) (Negative) Urine Ketones (Negative) Urine Blood (Negative) Urine Nitrite (Negative) Urine Bilirubin (Negative) Urine Urobilinogen (Negative) Ur Leukocyte Esterase (Negative) Urine WBC (Auto) (0-5) /hpf Urine RBC (Auto) (0-4) /hpf U Hyaline Cast (Auto) (0-5) /lpf U Epithel Cells (Auto) (0-5) /lpf Urine Bacteria (Auto) (Negative) Granular Casts (0) /lpf Urine Opiates Screen (Neg) Ur Methadone, Qual (Neg) Urine Barbiturates (Neg) Ur Phencyclidine (PCP) (Neg) U Amphetamin/Meth Scrn (Neg) MDMA (Ecstasy) Screen (Neg) U Benzodiazepines Scrn (Neg) Ur Cocaine Metabolite (Neg) U Marijuana (THC) Screen (Neg) Ethyl Alcohol mg/dL 84.0 H (0-3) mg/dl COVID-19 Eval Order Covid19 at [facility] SARS-CoV-2 (PCR) (Negative) 03/13/21 03/13/21 03/13/21 Range/Units 07:04 10:25 10:25 WBC (4.8-10.8) K/uL RBC (4.2-5.4) M/uL Hgb (12.0-16.0) g/dL Hct (37-47) % MCV (80-100) fL MCH (25-34) pg MCHC (32-36) g/dL RDW Std Deviation (36.4-46.3) fL RDW Coeff of Tatiana (11.5-14.5) % Plt Count (130-400) K/uL MPV (7.4-10.4) fL Immature Gran % (Auto) % Neut % (Auto) % Lymph % (Auto) % Edmunds % (Auto) % Eos % (Auto) % Baso % (Auto) % Neut # (Auto) (1.4-6.5) K/uL Lymph # (Auto) (1.2-3.4) K/uL Edmunds # (Auto) (0.11-0.59) K/uL Eos # (Auto) (0-0.5) K/uL Baso # (Auto) (0-0.2) K/uL Immature Gran # (Auto) (0.00-0.02) K/uL PT (9.0-12.0) Seconds INR (0.9-1.1) Sodium (136-145) mmol/L Potassium (3.5-5.1) mmol/L Chloride (98-107) mmol/L Carbon Dioxide (21-32) mmol/L Anion Gap (3-11) BUN (7-18) mg/dl Creatinine (0.6-1.2) mg/dl Est Cr Clr Drug Dosing ml/min Est GFR ( Amer) ml/min Est GFR (Non-Af Amer) ml/min BUN/Creatinine Ratio (10-20) Glucose (70-99) mg/dl Calcium (8.5-10.1) mg/dl Phosphorus (2.5-4.9) mg/dl Magnesium (1.8-2.4) mg/dl Total Bilirubin (0.2-1) mg/dl Direct Bilirubin (0-0.2) mg/dl AST (15-37) U/L ALT (12-78) U/L Alkaline Phosphatase (45-117) U/L Total Protein (6.4-8.2) gm/dl Albumin (3.4-5.0) gm/dl Globulin (2.5-4.0) gm/dl Albumin/Globulin Ratio (0.9-2) Lipase (73-393) U/L HCG, Qual (Negative) Urine Color [place] Urine Appearance Cloudy A (Clear) Urine pH 6.0 (4.5-7.5) Ur Specific [place] 1.021 (1.000-1.030) Urine Protein 2+ H (Negative) Urine Glucose (UA) Negative (Negative) Urine Ketones Trace H (Negative) Urine Blood Trace H (Negative) Urine Nitrite Positive A (Negative) Urine Bilirubin 1+ H (Negative) Urine Urobilinogen Negative (Negative) Ur Leukocyte Esterase 2+ H (Negative) Urine WBC (Auto) >30 H (0-5) /hpf Urine RBC (Auto) 0-4 (0-4) /hpf U Hyaline Cast (Auto) 10-30 H (0-5) /lpf U Epithel Cells (Auto) >30 H (0-5) /lpf Urine Bacteria (Auto) 1+ H (Negative) Granular Casts 1-5 H (0) /lpf Urine Opiates Screen Neg (Neg) Ur Methadone, Qual Neg (Neg) Urine Barbiturates Neg (Neg) Ur Phencyclidine (PCP) Neg (Neg) U Amphetamin/Meth Scrn Neg (Neg) MDMA (Ecstasy) Screen Neg (Neg) U Benzodiazepines Scrn Neg (Neg) Ur Cocaine Metabolite Neg (Neg) U Marijuana (THC) Screen Pos H (Neg) Ethyl Alcohol mg/dL (0-3) mg/dl COVID-19 Eval Order SARS-CoV-2 (PCR) NEGATIVE (Negative) Administered Medications Folic Acid (Folic Acid 1 Mg Tab) 1 mg PO QAM [facility] Stop: 04/12/21 13:03 Last Admin: 03/13/21 14:08 Dose: 1 mg Documented by: [id number] Gabapentin (Gabapentin 600 Mg Tab) 600 mg PO 06,1999 [facility] Stop: 03/14/21 06:01 Last Admin: 03/13/21 19:58 Dose: 600 mg Documented by: [id number] Pantoprazole Sodium 40 mg/ (Dextrose) 100 mls @ 20 mls/hr IV Q5H [facility] Stop: 04/12/21 13:14 Last Admin: 03/13/21 18:14 Dose: 8 mg/hr, 20 mls/hr Documented by: [id number] Infusion: 03/13/21 14:12 Dose: 0 mg/hr, 0 mls/hr Documented by: [id number] Admin: 03/13/21 14:07 Dose: 8 mg/hr, 20 mls/hr Documented by: [id number] Potassium Chloride 20 meq/ (Lactated Ringer's) 1,010 mls @ 200 mls/hr IV .Q5H3M [facility] Stop: 04/12/21 13:29 Last Admin: 03/13/21 19:58 Dose: 200 mls/hr Documented by: [id number] Infusion: 03/13/21 14:12 Dose: 0 mls/hr Documented by: [id number] Admin: 03/13/21 14:06 Dose: 200 mls/hr Documented by: [id number] Ceftriaxone Sodium 1,000 mg/ (Dextrose) 50 mls @ 100 mls/hr IV Q24H [facility]; Protocol Stop: 03/18/21 13:44 Last Infusion: 03/13/21 14:34 Dose: 0 mls/hr Documented by: [id number] Admin: 03/13/21 14:08 Dose: 100 mls/hr Documented by: [id number] Potassium Phosphate (Pot Phosphate Monobasic W/ Sod Tab) 1 tab PO QID [facility] Stop: 03/14/21 09:01 Last Admin: 03/13/21 20:00 Dose: 1 tab Documented by: [id number] Admin: 03/13/21 16:54 Dose: 1 tab Documented by: [id number] Admin: 03/13/21 14:07 Dose: 1 tab Documented by: [id number] Thiamine HCl (Thiamine Hcl 100 Mg Tab) 100 mg PO QAM [facility] Stop: 04/12/21 13:03 Last Admin: 03/13/21 14:08 Dose: 100 mg Documented by: [id number] Discontinued Medications Gabapentin (Gabapentin 1200mg Alcohol Withdrawal Load) 1 ea PO NOW STA; Protocol Stop: 03/13/21 12:36 Last Admin: 03/13/21 14:07 Dose: 1 ea Documented by: [id number] Gabapentin (Gabapentin 600 Mg Tab) 1,200 mg PO NOW ONE Stop: 03/13/21 13:05 Last Admin: 03/13/21 14:08 Dose: 1,200 mg Documented by: [id number] Multivitamins 10 ml/ Thiamine HCl 100 mg/ Folic Acid 1 mg/Sodium Chloride 1,011.2 mls @ 1,011.2 mls/hr IV .Q1H ONE Stop: 03/13/21 07:46 Last Infusion: 03/13/21 08:34 Dose: 0 mls/hr Documented by: [id number] Admin: 03/13/21 07:33 Dose: 1,011.2 mls/hr Documented by: [id number] Thiamine HCl 200 mg/ Sodium (Chloride) 52 mls @ 208 mls/hr IV NOW STA Stop: 03/13/21 07:01 Last Infusion: 03/13/21 08:00 Dose: 0 mls/hr Documented by: [id number] Admin: 03/13/21 07:33 Dose: 208 mls/hr Documented by: [id number] Famotidine (Pepcid 20mg Iv Push) 20 mg in 5 mls @ 2.5 mls/min IV NOW STA Stop: 03/13/21 06:48 Last Admin: 03/13/21 06:55 Dose: 2.5 mls/min Documented by: [id number] Lorazepam (Ativan) 2 mg in 4 mls @ 4 mls/min IV NOW STA Stop: 03/13/21 06:48 Last Admin: 03/13/21 06:58 Dose: 4 mls/min Documented by: [id number] Magnesium Sulfate/Dextrose (Magnesium Sulfate / D5w) 1 gm in 100 mls @ 100 mls/hr IV Q1H [facility] Stop: 03/13/21 11:50 Last Infusion: 03/13/21 13:15 Dose: 0 mls/hr Documented by: [id number] Admin: 03/13/21 11:45 Dose: 100 mls/hr Documented by: [id number] Infusion: 03/13/21 11:45 Dose: 100 mls/hr Documented by: [id number] Admin: 03/13/21 11:13 Dose: 100 mls/hr Documented by: [id number] Lorazepam (Ativan) 2 mg in 4 mls @ 4 mls/min IV NOW STA Stop: 03/13/21 09:53 Last Admin: 03/13/21 10:04 Dose: 4 mls/min Documented by: [id number] Dextrose/Sodium Chloride (D5w And Nss) 1,000 mls @ 999 mls/hr IV .Q1H1M [facility] Stop: 03/13/21 10:52 Last Infusion: 03/13/21 12:39 Dose: 0 mls/hr Documented by: [id number] Admin: 03/13/21 11:37 Dose: 999 mls/hr Documented by: [id number] Promethazine HCl (Phenergan) 25 mg in 51 mls @ 204 mls/hr IV NOW STA Stop: 03/13/21 10:07 Last Infusion: 03/13/21 10:37 Dose: 0 mls/hr Documented by: [id number] Admin: 03/13/21 10:21 Dose: 204 mls/hr Documented by: [id number] Potassium Chloride (K Jassi / Wtr) 10 meq in 100 mls @ 100 mls/hr IV Q1H [facility] Stop: 03/13/21 12:29 Last Infusion: 03/13/21 14:13 Dose: 0 mls/hr Documented by: [id number] Admin: 03/13/21 12:18 Dose: 100 mls/hr Documented by: [id number] Infusion: 03/13/21 12:17 Dose: 0 mls/hr Documented by: [id number] Admin: 03/13/21 11:14 Dose: 100 mls/hr Documented by: [id number] Pantoprazole Sodium (Protonix Bolus/Drip) 0 mls @ 1 mls/hr IV ONE STA Stop: 03/13/21 12:36 Last Infusion: 03/13/21 14:18 Dose: 0 mls/hr Documented by: [id number] Admin: 03/13/21 14:08 Dose: 1 mls/hr Documented by: [id number] Pantoprazole Sodium 80 mg/ (Dextrose) 120 mls @ 480 mls/hr IV TODAY@1300 [facility] Stop: 03/13/21 13:14 Last Infusion: 03/13/21 14:13 Dose: 0 mls/hr Documented by: [id number] Admin: 03/13/21 14:08 Dose: 480 mls/hr Documented by: [id number] Magnesium Sulfate/Dextrose (Magnesium Sulfate / D5w) 1 gm in 100 mls @ 50 mls/hr IV 1330 ONE Stop: 03/13/21 15:29 Last Infusion: 03/13/21 15:53 Dose: 0 mls/hr Documented by: [id number] Admin: 03/13/21 14:07 Dose: 50 mls/hr Documented by: [id number] Ioversol (Optiray 320 100ml) 94 ml IV ONCE ONE Stop: 03/13/21 10:45 Last Admin: 03/13/21 10:45 Dose: 94 ml Documented by: [id number] Ondansetron HCl (Ondansetron Inj 2 Mg/Ml 2 Ml Vial) 4 mg IV NOW STA Stop: 03/13/21 06:48 Last Admin: 03/13/21 06:55 Dose: 4 mg Documented by: [id number] Potassium Chloride (Potassium Chloride 20 Meq/15 Ml Udc) 40 meq PO NOW ONE Stop: 03/13/21 13:05 Last Admin: 03/13/21 14:08 Dose: 40 meq Documented by: [id number] Imaging Data Radiologist's Impression: Abdomen/Pelvis CT 03/13/21 09:51 CT SCAN OF THE ABDOMEN AND PELVIS WITH IV CONTRAST CLINICAL HISTORY: Epigastric abdominal pain. Pancreatitis. COMPARISON STUDY: Abdominal CT dated 07/29/2013. TECHNIQUE: Following the IV administration of 94 cc of Optiray 320, CT scan of the abdomen and pelvis is performed from the lung bases to the proximal femora. Images are reviewed in the axial, sagittal, and coronal planes. IV contrast was administered without complication. A dose lowering technique was utilized adhering to the principles of ALARA. CT DOSE: 815.25 mGycm FINDINGS: Lung bases: The heart is normal in size and without pericardial effusion. The lung bases are clear. Liver: The contrast-enhanced liver is mildly enlarged measuring 19 cm in length. The liver demonstrates diffusely diminished attenuation consistent with severe hepatic steatosis. There is no intrahepatic biliary ductal dilatation. The hep atic veins and portal veins are patent. Gallbladder: Unremarkable. Spleen: Normal in size and attenuation. Pancreas: The pancreas is normal in size and enhances homogeneously. Faint infiltration is suggested around the pancreatic head. The pancreatic duct is normal in caliber. No organized peripancreatic fluid collection is seen. The splenic vein is patent. Adrenal glands: Unremarkable. Kidneys: The contrast enhanced kidneys are normal in size and without hydronephr osis. The kidneys enhance symmetrically. Abdominal vasculature: The abdominal aorta is normal in course and caliber. Bowel: There is no bowel obstruction. The appendix is well-visualized and normal. Peritoneum: There is no intraperitoneal free air or abdominal ascites. There is a small fat-containing umbilical hernia. Lymphadenopathy: None. Pelvic viscera: The bladder is decompressed and not well evaluated. The uterus and adnexa are normal as visualized noting bilateral ovarian follicles. Skeletal structures: No lytic or blastic lesions are seen. IMPRESSION: 1. Findings suggest mild acute pancreatitis as clinically suspected. 2. The gland enhances homogeneously and there is no peripancreatic fluid collection. 3. Hepatomegaly and severe hepatic steatosis. 4. Additional findings as above. ACT 112: Negative or not required by law. Electronically signed by: Francisco Fraser M.D. 03/13/2021 11:02 AM Discharge Plan Visit Data Chief Complaint: Alcohol Withdrawal Stated Complaint: ALCOHOL WITHDRAWL ED Provider: Ja Alcaraz Discharge Problem: Alcohol withdrawal, Alcoholic pancreatitis, Hypokalemia, Hypophosphatemia, Hypomagnesemia Patient Disposition: Admitted As Inpatient Discharge Instructions Interventions: ED Discharge Assessment Last Done: 03/13/21 12:25 Discharge Problem: Alcohol withdrawal Qualifiers: Complication of substance-induced condition: with delirium Qualified Code(s): F10.231 - Alcohol dependence with withdrawal delirium Alcoholic pancreatitis Qualifiers: Chronicity: acute Acute pancreatitis complication: unspecified Qualified Code(s): K85.20 - Alcohol induced acute pancreatitis without necrosis or infection
[2021-03-13 07:01] LABS: Basophils # (auto) 0.03 K/uL (0-0.2); Basophils % (auto) 0.3 %; Eosinophils # (auto) 0.27 K/uL (0-0.5); Eosinophils % (auto) 2.4 %; Hematocrit (blood only) 45.6 % (37-47); Hemoglobin 15.8 g/dL (12.0-16.0); Immature Granulocytes # (auto) 0.02 K/uL (0.00-0.02); Immature Granulocytes % (auto) 0.2 %; Lymphocytes # (auto) 3.67 K/uL (1.2-3.4); Lymphocytes % (auto) 32.4 %; Mean Corpuscular Hgb Conc 34.6 g/dL (32-36); Mean Corpuscular Volume 89.6 fL (80-100); Mean Platelet Volume 10.8 fL (7.4-10.4); Monocytes # (auto) 0.79 K/uL (0.11-0.59); Neutrophils # (auto) 6.56 K/uL (1.4-6.5); Neutrophils % (auto) 57.7 %; Platelet Count 199 K/uL (130-400); RDW Coefficient of Variation 13.3 % (11.5-14.5); RDW Standard Deviation 43.9 fL (36.4-46.3); Red Blood Count 5.09 M/uL (4.2-5.4); White Blood Count 11.34 K/uL (4.8-10.8)
[2021-03-13 07:08] LABS: Albumin Level 3.8 gm/dl (3.4-5.0); BUN Creatinine Ratio 10.2 (10-20); Calcium 9.5 mg/dl (8.5-10.1); Creatinine Clr Calc Pharmacy 97.4 ml/min; Est GFR (African American) 108.1 ml/min; Est GFR (Non-African American) 93.3 ml/min; Magnesium 1.5 mg/dl (1.8-2.4); Potassium 2.8 mmol/L (3.5-5.1)
[2021-03-13 07:11] LABS: Bilirubin Direct 0.3 mg/dl (0-0.2); Bilirubin,Total 1.2 mg/dl (0.2-1); Globulin 3.9 gm/dl (2.5-4.0); Phosphorus 1.9 mg/dl (2.5-4.9); Total Protein 7.7 gm/dl (6.4-8.2)
[2021-03-13 07:20] LABS: Pregnancy Test, Serum Negative (Negative)
[2021-03-13] MEDS ORDERED: POTASSIUM CHLORIDE / WTR 20 MEQ/100 ML PLCT IV ONE (09:51)
[2021-03-13] MEDS ORDERED: D5W AND NSS 1,000 ML IV STA (09:52)
[2021-03-13] MEDS ORDERED: PROMETHAZINE 25 MG/51 ML BAG IV STA (09:53)
[2021-03-13 10:40] LABS: Appearance Urine Cloudy (Clear); Bacteria Urine Automated 1+ (Negative); Blood Urine Trace (Negative); Color Urine Orange; Epithelial Cell Urine Auto >30 /lpf (0-5); Glucose Urine UA Negative (Negative); Ketones Urine Trace (Negative); Leukocyte Esterase Urine 2+ (Negative); Nitrite Urine Positive (Negative); Protein Urine 2+ (Negative); Specific Gravity Urine 1.021 (1.000-1.030); Urobilinogen Urine Negative (Negative); WBC Urine Automated >30 /hpf (0-5)
[2021-03-13 10:41] LABS: Bilirubin Urine 1+ (Negative)
[2021-03-13] MEDS ORDERED: OPTIRAY 320 100ml IV ONE (10:44)
[2021-03-13 10:52] LABS: RBC Urine Automated 0-4 /hpf (0-4)
--- NOTE | 2021-03-13 11:03 | CT Scan Report ---
CT SCAN OF THE ABDOMEN AND PELVIS WITH IV CONTRAST CLINICAL HISTORY: Epigastric abdominal pain. Pancreatitis. COMPARISON STUDY: Abdominal CT dated 07/29/2013. TECHNIQUE: Following the IV administration of 94 cc of Optiray 320, CT scan of the abdomen and pelvi s is performed from the lung bases to the proximal femora. Images are reviewed in the axial, sagittal , and coronal planes. IV contrast was administered without complication. A dose lowering technique wa s utilized adhering to the principles of ALARA. CT DOSE: 815.25 mGycm FINDINGS: Lung bases: The heart is normal in size and without pericardial effusion. The lung bases are clear. Liver: The contrast-enhanced liver is mildly enlarged measuring 19 cm in length. The liver demonstrat es diffusely diminished attenuation consistent with severe hepatic steatosis. There is no intrahepati c biliary ductal dilatation. The hepatic veins and portal veins are patent. Gallbladder: Unremarkable. Spleen: Normal in size and attenuation. Pancreas: The pancreas is normal in size and enhances homogeneously. Faint infiltration is suggested around the pancreatic head. The pancreatic duct is normal in caliber. No organized peripancreatic flu id collection is seen. The splenic vein is patent. Adrenal glands: Unremarkable. Kidneys: The contrast enhanced kidneys are normal in size and without hydronephrosis. The kidneys enh ance symmetrically. Abdominal vasculature: The abdominal aorta is normal in course and caliber. Bowel: There is no bowel obstruction. The appendix is well-visualized and normal. Peritoneum: There is no intraperitoneal free air or abdominal ascites. There is a small fat-containin g umbilical hernia. Lymphadenopathy: None. Pelvic viscera: The bladder is decompressed and not well evaluated. The uterus and adnexa are normal as visualized noting bilateral ovarian follicles. Skeletal structures: No lytic or blastic lesions are seen. IMPRESSION: 1. Findings suggest mild acute pancreatitis as clinically suspected. 2. The gland enhances homogeneously and there is no peripancreatic fluid collection. 3. Hepatomegaly and severe hepatic steatosis. 4. Additional findings as above. ACT 112: Negative or not required by law. Electronically signed by: Francisco Fraser M.D. 03/13/2021 11:02 AM
[2021-03-13] MEDS: MAGNESIUM SULFATE / D5W 1 GM/100 ML BAG IV SCH ×2 (11:13→11:45)
[2021-03-13] MEDS: POTASSIUM CHLORIDE / WTR 10 MEQ/100 ML PLCT IV SCH ×2 (11:14→12:18)
[2021-03-13] MEDS ORDERED: PANTOPRAZOLE BOLUS/DRIP 1 EA IV STA (12:35)
[2021-03-13] MEDS ORDERED: GABAPENTIN 1200MG ALCOHOL WITHDRAWAL LOAD PO STA (12:35)
[2021-03-13] MEDS ORDERED: PANTOprazole 80 MG in DEXTROSE 5% 100 ML IV SCH (13:00)
[2021-03-13] MEDS ORDERED: PANTOprazole 80 MG in DEXTROSE 5% 100 ML IV ONE (13:04)
[2021-03-13] MEDS ORDERED: ATIVAN IV ALCOHOL WITHDRAWL IV PRN (13:04)
[2021-03-13] MEDS ORDERED: GABAPENTIN 600 MG TAB PO ONE (13:04)
[2021-03-13] MEDS ORDERED: LORazepam 3 MG/6 ML VIAL IV PRN (13:04)
[2021-03-13] MEDS ORDERED: PANTOprazole 40 MG in DEXTROSE 5% 100 ML IV SCH (13:04)
[2021-03-13] MEDS ORDERED: POTASSIUM CHLORIDE 20 MEQ/15 ML UDC PO ONE (13:04)
--- NOTE | 2021-03-13 13:06 | History & Physical Report ---
Date of Service March 13, 2021 Assessment & Plan (1) Alcohol withdrawal: Plan: -Admit to telemetry -Patient presenting from home with reports of alcohol withdrawal, vomiting -Longstanding history of alcohol abuse with periods of sobriety and binge drinking -Alcohol withdrawal protocol with gabapentin and IV Ativan -Thiamine, folic acid -Mental health consult (2) Alcoholic pancreatitis: Plan: -Lipase 1500, CT ABD/pelvis consistent with mild acute pancreatitis -N.p.o., IVF (3) GI bleed: Plan: -Patient reporting hematemesis and black stools -Hgb stable at 15.8 -Alcohol gastritis vs. ?? PUD -Fatty liver noted on CT however no cirrhosis, hold on octreotide for now -No history of EGD or colonoscopy -GI consult (4) Elevated LFTs: Plan: -T bili 1.2, AST 199, ALT 160, alk phos 64 -Likely due to underlying alcohol use -Trend LFTs (5) Hypokalemia: (6) Hypophosphatemia: (7) Hypomagnesemia: Plan: -Replace, follow electrolytes (8) Abnormal finding on urinalysis: Plan: -UA suggest possible UTI -Start IV ceftriaxone -Does not appear septic -Follow culture (9) Closed right ankle fracture: Plan: -History of right distal fibular fracture on 02/05 -Following with Ortho, maintain boot (10) DVT prophylaxis: Plan: -SCDs Admission and Anticipated Discharge Date Admission Date: March 13, 2021 History of Present Illness Chief Complaint: Alcohol withdrawal Primary Care Provider: Evin Hill MD 30-year-old female with PMH mild intermittent asthma, chronic hepatitis C, alcohol abuse, mood disorder, and other problems to below who presents to the ED for evaluation of alcohol withdrawal. Patient has a longstanding history of alcohol abuse with periods of sobriety and binge drinking. Patient reports she had been sober for the past 1 year however started drinking again 5 days ago. 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 She also reports a difficult relationship with her father. Over the past 5 days, patient reports she drank a bottle of cinnamon whiskey and several alcoholic sliders. Last drink was around 3 PM yesterday. Overnight, patient reports she developed persistent vomiting. She reports a small amount of hematemesis. She has had generalized abdominal pain. She also reports black stools. She has had a headache with episodes of diaphoresis and tremors. She denies chest pain and shortness of breath. No lightheadedness, dizziness, diaphoresis, syncopal events. She denies any other recent illnesses, fevers, chills. No urinary symptoms. In the ED, labs show several electrolyte abnormalities including K+ 2.8, Phos 1.9, MG +1.5. Elevated LFTs. Lipase 1500. UA suggestive of possible UTI. Alcohol level 84. CT ABD/pelvis shows mild acute pancreatitis. Patient was given IVF, IV famotidine, IV lorazepam 2 mg x 2 doses, banana bag, potassium and magnesium replacement. Allergies Allergy/AdvReac Type Severity Reaction Status Date / Time apple Allergy Intermediate RAW Verified 03/13/21 06:55 APPLES--MOUTH SWELLS, ITCHY TONGUE, HIVES apricot Allergy Intermediate RAW Verified 03/13/21 06:55 APRICOTS--MOUTH SWELLS, ITCHY TONGUE, HIVES cat dander Allergy Intermediate MOUTH Verified 03/13/21 06:55 SWELLS, ITCHY TONGUE, HIVES Home Medications Medication Instructions Recorded Confirmed Type No Known Home Medications 03/13/21 03/13/21 History Past Med/Surg History Medical History Alcohol abuse Asthma, mild intermittent Closed right ankle fracture Hepatitis C Narcotic addiction Surgical History S/P tonsillectomy Family History Mother Breast cancer Social History Smoking Status: Former smoker Tobacco Type: Cigarettes Hx Alcohol Use: Yes Alcohol type: hard liquor Hx Substance Use: Yes Preferred Language: Jamaican Communication Ability: Effective Beliefs That Will Affect Care: None Current Living Situation: Alone How many Children do You have: 1 Other Information That Helps Us Care for You: No Feels Safe at Home: Yes Safety Concerns: Feels Safe At This Time Assistive Devices: None Review of Systems Review of Systems: ROS per HPI, all other systems reviewed and negative Physical Exam Constitutional: WD/WN, vitals as above Eyes: PERRL, conjunctivae normal, anicteric sclerae ENMT: external ear and nose normal, oropharynx normal Respiratory: normal respiratory effort, lungs clear to auscultation Cardiovascular: Rate/Rhythm: regular rhythm and + tachycardic Vessels: normal peripheral pulses Extremities: no edema Gastrointestinal (Abdomen): Inspection/Auscultation: normal bowel sounds Percussion/Palpation: + abdomen tender (mild, RUQ) and abdomen soft; no hepatosplenomegaly Musculoskeletal: no cyanosis or clubbing, extremities motor strength 5/5 Skin: no rashes, warm and dry Neurologic: PERRL, EOMI, accommodation nl, no face palsy, no dysarthria Motor/Sensory: + tremor Psychiatric: Orientation: alert and oriented x 3 Affect: + anxious affect Results & Data Results & Data ([facility]) Vital Signs (Past 12 Hours) Vital Signs Temp Pulse Pulse Resp BP Pulse Ox 03/13/21 12:00 119 H 22 138/84 99 03/13/21 10:00 130 H 18 129/87 98 03/13/21 08:14 143 H 18 136/87 97 03/13/21 07:05 97 03/13/21 06:25 135 H 142/112 H 99 03/13/21 06:17 36.8 C 165 H 18 96 Laboratory Results Short CBC 03/13/21 Range/Units 06:40 WBC 11.34 H (4.8-10.8) K/uL Hgb 15.8 (12.0-16.0) g/dL Hct 45.6 (37-47) % Plt Count 199 (130-400) K/uL BMP 03/13/21 06:40 Sodium 138 Potassium 2.8 L Chloride 101 Carbon Dioxide 21 BUN 9 Creatinine 0.84 Glucose 109 H Calcium 9.5 Liver Function 03/13/21 Range/Units 06:40 Total Bilirubin 1.2 H (0.2-1) mg/dl Direct Bilirubin 0.3 H (0-0.2) mg/dl AST 199 H (15-37) U/L ALT 160 H (12-78) U/L Alkaline Phosphatase 64 (45-117) U/L Albumin 3.8 (3.4-5.0) gm/dl Urine 03/13/21 Range/Units 10:25 Urine Color [place] Urine Appearance Cloudy A (Clear) Urine pH 6.0 (4.5-7.5) Ur Specific [place] 1.021 (1.000-1.030) Urine Protein 2+ H (Negative) Urine Glucose (UA) Negative (Negative) Diagnostic Findings Abdomen/Pelvis CT 03/13/21 09:51 CT SCAN OF THE ABDOMEN AND PELVIS WITH IV CONTRAST CLINICAL HISTORY: Epigastric abdominal pain. Pancreatitis. COMPARISON STUDY: Abdominal CT dated 07/29/2013. TECHNIQUE: Following the IV administration of 94 cc of Optiray 320, CT scan of the abdomen and pelvis is performed from the lung bases to the proximal femora. Images are reviewed in the axial, sagittal, and coronal planes. IV contrast was administered without complication. A dose lowering technique was utilized adhering to the principles of ALARA. CT DOSE: 815.25 mGycm FINDINGS: Lung bases: The heart is normal in size and without pericardial effusion. The lung bases are clear. Liver: The contrast-enhanced liver is mildly enlarged measuring 19 cm in length. The liver demonstrates diffusely diminished attenuation consistent with severe hepatic steatosis. There is no intrahepatic biliary ductal dilatation. The hepatic veins and portal veins are patent. Gallbladder: Unremarkable. Spleen: Normal in size and attenuation. Pancreas: The pancreas is normal in size and enhances homogeneously. Faint infiltration is suggested around the pancreatic head. The pancreatic duct is normal in caliber. No organized peripancreatic fluid collection is seen. The splenic vein is patent. Adrenal glands: Unremarkable. Kidneys: The contrast enhanced kidneys are normal in size and without hydronephrosis. The kidneys enhance symmetrically. Abdominal vasculature: The abdominal aorta is normal in course and caliber. Bowel: There is no bowel obstruction. The appendix is well-visualized and normal. Peritoneum: There is no intraperitoneal free air or abdominal ascites. There is a small fat-containing umbilical hernia. Lymphadenopathy: None. Pelvic viscera: The bladder is decompressed and not well evaluated. The uterus and adnexa are normal as visualized noting bilateral ovarian follicles. Skeletal structures: No lytic or blastic lesions are seen. IMPRESSION: 1. Findings suggest mild acute pancreatitis as clinically suspected. 2. The gland enhances homogeneously and there is no peripancreatic fluid collection. 3. Hepatomegaly and severe hepatic steatosis. 4. Additional findings as above. ACT 112: Negative or not required by law. Electronically signed by: Francisco Fraser M.D. 03/13/2021 11:02 AM Code Status & VTE Plan VTE Prophylaxis Plan VTE Prophylaxis will be ordered: Yes Supervising Physician Co-Signing Physician Notes Patient was seen and examined on 03/13/2021. Patient was somnolent could not provide me any relevant history. Patient had a sitter at bedside. Hemodynamically patient is doing okay. I performed a history and physical examination of the patient on 03/14/21, including specifically H&P. I have discussed the patient's management with the advanced practitioner. Please refer to the Glenda Gant note for the documented findings and plan of care.
[2021-03-13] MEDS ORDERED: MAGNESIUM SULFATE / D5W 1 GM/100 ML BAG IV ONE (13:30)
[2021-03-13 13:34] LABS: Amphetamines+Metham, Urine Neg (Neg); Barbiturates, Urine Neg (Neg); Benzodiazepine, Urine Neg (Neg); Cocaine, Urine Neg (Neg); MDMA (Ecstacy), Urine Neg (Neg); Methadone, Urine Neg (Neg); Opiate, Urine Neg (Neg); Phencyclidine, Urine Neg (Neg)
[2021-03-13] MEDS ORDERED: cefTRIAXone SODIUM 1,000 MG in DEXTROSE 5% 50 ML IV SCH (13:45)
--- NOTE | 2021-03-13 13:47 | Gastrointestinal Consultation ---
Date of Consultation March 13, 2021 Assessment & Plan (1) Alcohol withdrawal: (2) Alcoholic pancreatitis: (3) Alcohol abuse: (4) Hepatitis C: (5) Elevated LFTs: (6) GI bleed: Pt is a 30 y/o female currently with ETOH intoxication/withdrawal, reported blood specks on emesis and black stools. Noted pancreatitis likely from ETOH abuse and also elevated LFTs, suspect ETOH hepatitis. She also carries hx of HCV Labs showed she may be a bit on dry side with normal blood ct and normal BUN. Maddrey Discriminant Function score <32 - PPI gtt - NPO - LR IVF support - Electrolyte correction per primary team - Monitor for s/s of GI bleeding; call GI if hematemesis, melena - Strict ETOH cessation; consider inpt rehab once stable - ETOH withdrawal protocol - Symptomatic management with antiemetics and analgesics prn Supervising Physician Co-Signing Physician Notes patient is currently oriented to person, place, time, benign abdominal exam. Labs reviewed sig for ast 199/alt 160/lipase 1588 Concerns for pancreatitis based on lipase elevation and imaging with findings also of fatty liver on imaging presumably from etoh use +/- weight. She is not voicing any pain to me currently and wants to rest. Agree with further plan of care as per April's plan. History of Present Illness Reason for Consultation: ETOH pancreatitis, ? GI bleed Requesting Physician: Dr. Onesimo Ram Attending Physician: Dr. Priscila Costa History of Present Illness Pt is a 30 y/o female w PMH mild intermittent asthma, chronic hepatitis C, alcohol abuse, mood disorder who presented wo ED today for ETOH withdrawals. She is currently intoxicated, admitted to drink 1/2 gallon of [place] daily. Been through counseling and [facility] x 5. She reports having abd pain, n/v. Emesis greenish w red spots ? blood. Stools black this AM. She denies any fever, chills, CP SOB. on evaluation, noted labs include several electrolyte imbalance, elevated LFTs and lipase, ETOH level 84. CT abd/pelvis showed signs of hepatomegaly, hepatic steatosis, acute pancreatitis w/o peripancreatic fluid collection. On exam, she appears disinterested in conversing with me, making jokes and doesn't seem coherent. Allergies Allergy/AdvReac Type Severity Reaction Status Date / Time apple Allergy Intermediate RAW Verified 03/13/21 06:55 APPLES--MOUTH SWELLS, ITCHY TONGUE, HIVES apricot Allergy Intermediate RAW Verified 03/13/21 06:55 APRICOTS--MOUTH SWELLS, ITCHY TONGUE, HIVES cat dander Allergy Intermediate MOUTH Verified 03/13/21 06:55 SWELLS, ITCHY TONGUE, HIVES Home Medications Medication Instructions Recorded Confirmed Type No Known Home Medications 03/13/21 03/13/21 History Patient History Medical History Alcohol abuse Asthma, mild intermittent Closed right ankle fracture Hepatitis C Narcotic addiction Surgical History S/P tonsillectomy Family History Mother Breast cancer Social History Smoking Status: Former smoker Tobacco Type: Cigarettes Hx Alcohol Use: Yes Alcohol type: hard liquor Hx Substance Use: Yes Preferred Language: Turkmen Communication Ability: Effective Beliefs That Will Affect Care: None Current Living Situation: Alone Other Information That Helps Us Care for You: No Feels Safe at Home: Yes Safety Concerns: Feels Safe At This Time Review of Systems Review of Systems: All systems reviewed & are unremarkable except as noted in HPI & below Physical Exam Constitutional: WD/WN, vitals as above + intoxicated appearing Eyes: PERRL, conjunctivae normal, anicteric sclerae ENMT: external ear and nose normal, oropharynx normal Respiratory: normal respiratory effort, lungs clear to auscultation Cardiovascular: RRR, no murmur, no edema Gastrointestinal (Abdomen): normal bowel sounds, soft, nontender, no hepatosplenomegaly Skin: no rashes, warm and dry no jaundice Psychiatric: A+Ox3, euthymic affect Lymphatic: no lymphedema Results & Data ([facility]) Vital Signs (Past 12 Hours) Vital Signs Temp Pulse Pulse Resp BP Pulse Ox 03/13/21 13:26 36.5 C 139 H 18 139/76 95 03/13/21 12:00 119 H 22 138/84 99 03/13/21 10:00 130 H 18 129/87 98 03/13/21 08:14 143 H 18 136/87 97 03/13/21 07:05 97 03/13/21 06:25 135 H 142/112 H 99 03/13/21 06:17 36.8 C 165 H 18 96
[2021-03-13] MEDS: POTASSIUM CHLORIDE 20 MEQ in LACTATED RINGER'S 1,000 ML IV SCH ×2 (14:06→19:58)
[2021-03-13] MEDS: POT PHOSPHATE MONOBASIC W/ SOD TAB PO SCH ×3 (14:07→20:00)
[2021-03-13] MEDS: PANTOprazole 40 MG in DEXTROSE 5% 100 ML IV SCH ×3 (14:07→23:19)
[2021-03-13] MEDS: FOLIC ACID 1 MG TAB PO SCH (14:08)
[2021-03-13] MEDS: THIAMINE HCL 100 MG TAB PO SCH (14:08)
[2021-03-13 17:11] LABS: Hematocrit (blood only) 39.7 % (37-47); Hemoglobin 12.9 g/dL (12.0-16.0)
[2021-03-13] MEDS: GABAPENTIN 600 MG TAB PO SCH (19:58)
--- NOTE | 2021-03-13 22:16 | Electrocardiogram Report ---
Test Reason : Blood Pressure : / mmHG Vent. Rate : 127 BPM Atrial Rate : 127 BPM P-R Int : 000 ms QRS Dur : 080 ms QT Int : 304 ms P-R-T Axes : 000 073 035 degrees QTc Int : 442 ms Sinus tachycardia T wave abnormality, consider inferolateral ischemia Abnormal ECG When compared with ECG of 30-JAN-2020 22:13, Nonspecific T wave abnormality, worse in Anterolateral leads Confirmed by Byron Dewitt ([id number]) on 03/13/2021 10:15:33 PM Referred By: REFERRED SELF Confirmed By:Byron Dewitt
[2021-03-13] MEDS: LORazepam 2 MG/4 ML VIAL IV PRN (22:38)
[2021-03-13 23:22] LABS: Hematocrit (blood only) 37.9 % (37-47); Hemoglobin 12.5 g/dL (12.0-16.0)
[2021-03-14] MEDS: POTASSIUM CHLORIDE 20 MEQ in LACTATED RINGER'S 1,000 ML IV SCH ×5 (00:42→19:43)
[2021-03-14] MEDS: PANTOprazole 40 MG in DEXTROSE 5% 100 ML IV SCH ×4 (04:20→19:27)
[2021-03-14] MEDS: GABAPENTIN 600 MG TAB PO SCH ×3 (06:26→21:05)
[2021-03-14 07:38] LABS: Hemoglobin 11.7 g/dL (12.0-16.0); Mean Corpuscular Hemoglobin 30.5 pg (25-34); Mean Corpuscular Hgb Conc 32.5 g/dL (32-36); Mean Corpuscular Volume 93.8 fL (80-100); Mean Platelet Volume 11.1 fL (7.4-10.4); Platelet Count 102 K/uL (130-400); RDW Coefficient of Variation 13.6 % (11.5-14.5); RDW Standard Deviation 46.4 fL (36.4-46.3); Red Blood Count 3.84 M/uL (4.2-5.4); White Blood Count 4.87 K/uL (4.8-10.8)
[2021-03-14 08:10] LABS: Albumin Level 2.6 gm/dl (3.4-5.0); BUN Creatinine Ratio 12.4 (10-20); Calcium 8.1 mg/dl (8.5-10.1); Creatinine Clr Calc Pharmacy 155.6 ml/min; Est GFR (African American) 146.8 ml/min; Est GFR (Non-African American) 126.6 ml/min; Magnesium 1.6 mg/dl (1.8-2.4); Potassium 4.1 mmol/L (3.5-5.1)
[2021-03-14 08:14] LABS: Albumin Globulin Ratio 0.9 (0.9-2); Bilirubin,Total 1.5 mg/dl (0.2-1); Globulin 2.8 gm/dl (2.5-4.0); Phosphorus 3.6 mg/dl (2.5-4.9); Total Protein 5.4 gm/dl (6.4-8.2)
[2021-03-14] MEDS: FOLIC ACID 1 MG TAB PO SCH (08:23)
[2021-03-14] MEDS: POT PHOSPHATE MONOBASIC W/ SOD TAB PO SCH (08:23)
[2021-03-14] MEDS: THIAMINE HCL 100 MG TAB PO SCH (08:23)
[2021-03-14] MEDS: ACETAMINOPHEN 325 MG TAB PO PRN ×2 (08:25→19:26)
[2021-03-14] MEDS: LORazepam 1 MG/2 ML VIAL IV PRN ×3 (08:26→21:19)
--- NOTE | 2021-03-14 08:49 | Gastroenterology Progress Note ---
Date of Service March 14, 2021 Assessment & Plan (1) GI bleed: Plan: 30 year old female admitted w/ ETOH intoxication/withdrawal, reported blood specks on emesis and black stools. No further evidence of GI bleeding overnight and HGB stable. CT suggests acute pancreatitis likely from ETOH abuse and also elevated LFTs, suspect ETOH hepatitis. She also carries hx of HCV [facility] Discriminant Function score <32 - Trend HGB - Monitor for s/s of GI bleeding - Can continue PPI gtt until bag runs dry - Then IV PPI BID x 48 hours then PO PPI 40 mg twice daily x 1 month then once daily thereafter - NPO - LR IVF support 150/200mL/hr - Electrolyte correction per primary team - Symptomatic management with antiemetics and analgesics prn - Can trial sips/chips once pain is better controlled - Strict ETOH cessation; consider inpt rehab once stable - ETOH withdrawal protocol - Recall GI as needed for any acute signs of GI bleed or worrisome drop in HGB. Thank you for allowing us to participate in the care of this patient. Please call with any acute changes, questions or concerns. Please see addendum below with additional recommendation from my supervising physician. Admission and Anticipated Discharge Date Admission Date: March 13, 2021 Supervising Physician Co-Signing Physician Notes AST bump but still think this is from alcohol use PE essentiall unchanged Agree with further plan of care as per Lexi's plan of care. Subjective Pt was seen and evaluated this AM She is OOB ambulating to commode with nursing staff Reports continued generalized pains "entire body" Notes headache, abd pain and severe lower pelvic "uterus" pain Also reports urinary symptoms No nausea/vomiting or evidence of black/bloody stools overnight. HGB stable BUN normal LFTs relatively stable overnight No new COAG studies this AM Review of Systems Review of Systems: All systems reviewed & are unremarkable except as noted in HPI & below Physical Exam 2 Constitutional: WD/WN, vitals as above Neck: normal visual inspection and trachea midline; no tracheal deviation Respiratory: normal respiratory effort and able to speak in complete sentences; no respiratory distress, no labored breathing, no cough and no audible wheezes Cardiovascular: Rate/Rhythm: regular rhythm and + tachycardic Extremities: no edema Gastrointestinal (Abdomen): Percussion/Palpation: + abdomen tender; no guarding, abdomen not rigid and + abdomen not soft Skin: no rashes, warm and dry Results & Data ([facility]) Vital Signs (Past 12 Hours) Vital Signs Temp Pulse Pulse Resp BP Pulse Ox 03/14/21 07:17 36.7 C 114 H 20 123/82 94 03/14/21 03:27 36.9 C 110 H 18 120/80 96 03/14/21 00:13 117 H 03/13/21 22:48 36.6 C 111 H 16 112/77 97 Laboratory Results 03/14/21 03/14/21 03/13/21 Range/Units 07:04 07:04 23:06 WBC 4.87 (4.8-10.8) K/uL RBC 3.84 L (4.2-5.4) M/uL Hgb 11.7 L 12.5 (12.0-16.0) g/dL Hct 36.0 L 37.9 (37-47) % MCV 93.8 (80-100) fL MCH 30.5 (25-34) pg MCHC 32.5 (32-36) g/dL RDW Std Deviation 46.4 H (36.4-46.3) fL RDW Coeff of Tatiana 13.6 (11.5-14.5) % Plt Count 102 L (130-400) K/uL MPV 11.1 H (7.4-10.4) fL PT (9.0-12.0) Seconds INR (0.9-1.1) Sodium 138 (136-145) mmol/L Potassium 4.1 (3.5-5.1) mmol/L Chloride 109 H (98-107) mmol/L Carbon Dioxide 25 (21-32) mmol/L Anion Gap 5.0 (3-11) BUN 7 (7-18) mg/dl Creatinine 0.54 L D (0.6-1.2) mg/dl Est Cr Clr Drug Dosing 155.6 ml/min Est GFR ( Amer) 146.8 ml/min Est GFR (Non-Af Amer) 126.6 ml/min BUN/Creatinine Ratio 12.4 (10-20) Glucose 79 (70-99) mg/dl Calcium 8.1 L (8.5-10.1) mg/dl Phosphorus 3.6 D (2.5-4.9) mg/dl Magnesium 1.6 L (1.8-2.4) mg/dl Total Bilirubin 1.5 H (0.2-1) mg/dl AST 291 H (15-37) U/L ALT 155 H (12-78) U/L Alkaline Phosphatase 43 L (45-117) U/L Total Protein 5.4 L D (6.4-8.2) gm/dl Albumin 2.6 L (3.4-5.0) gm/dl Globulin 2.8 (2.5-4.0) gm/dl Albumin/Globulin Ratio 0.9 (0.9-2) Lipase 325 (73-393) U/L Urine Color Urine Appearance (Clear) Urine pH (4.5-7.5) Ur Specific [place] (1.000-1.030) Urine Protein (Negative) Urine Glucose (UA) (Negative) Urine Ketones (Negative) Urine Blood (Negative) Urine Nitrite (Negative) Urine Bilirubin (Negative) Urine Urobilinogen (Negative) Ur Leukocyte Esterase (Negative) Urine WBC (Auto) (0-5) /hpf Urine RBC (Auto) (0-4) /hpf U Hyaline Cast (Auto) (0-5) /lpf U Epithel Cells (Auto) (0-5) /lpf Urine Bacteria (Auto) (Negative) Granular Casts (0) /lpf Urine Opiates Screen (Neg) Ur Methadone, Qual (Neg) Urine Barbiturates (Neg) Ur Phencyclidine (PCP) (Neg) U Amphetamin/Meth Scrn (Neg) MDMA (Ecstasy) Screen (Neg) U Benzodiazepines Scrn (Neg) Ur Cocaine Metabolite (Neg) U Marijuana (THC) Screen (Neg) U Marijuana THC Carboxy Drug Screen Comment 03/13/21 03/13/21 03/13/21 Range/Units 16:53 16:53 10:25 WBC (4.8-10.8) K/uL RBC (4.2-5.4) M/uL Hgb 12.9 (12.0-16.0) g/dL Hct 39.7 (37-47) % MCV (80-100) fL MCH (25-34) pg MCHC (32-36) g/dL RDW Std Deviation (36.4-46.3) fL RDW Coeff of Tatiana (11.5-14.5) % Plt Count (130-400) K/uL MPV (7.4-10.4) fL PT (9.0-12.0) Seconds INR (0.9-1.1) Sodium (136-145) mmol/L Potassium 4.7 D (3.5-5.1) mmol/L Chloride (98-107) mmol/L Carbon Dioxide (21-32) mmol/L Anion Gap (3-11) BUN (7-18) mg/dl Creatinine (0.6-1.2) mg/dl Est Cr Clr Drug Dosing ml/min Est GFR ( Amer) ml/min Est GFR (Non-Af Amer) ml/min BUN/Creatinine Ratio (10-20) Glucose (70-99) mg/dl Calcium (8.5-10.1) mg/dl Phosphorus (2.5-4.9) mg/dl Magnesium (1.8-2.4) mg/dl Total Bilirubin (0.2-1) mg/dl AST (15-37) U/L ALT (12-78) U/L Alkaline Phosphatase (45-117) U/L Total Protein (6.4-8.2) gm/dl Albumin (3.4-5.0) gm/dl Globulin (2.5-4.0) gm/dl Albumin/Globulin Ratio (0.9-2) Lipase (73-393) U/L Urine Color Urine Appearance (Clear) Urine pH (4.5-7.5) Ur Specific [place] (1.000-1.030) Urine Protein (Negative) Urine Glucose (UA) (Negative) Urine Ketones (Negative) Urine Blood (Negative) Urine Nitrite (Negative) Urine Bilirubin (Negative) Urine Urobilinogen (Negative) Ur Leukocyte Esterase (Negative) Urine WBC (Auto) (0-5) /hpf Urine RBC (Auto) (0-4) /hpf U Hyaline Cast (Auto) (0-5) /lpf U Epithel Cells (Auto) (0-5) /lpf Urine Bacteria (Auto) (Negative) Granular Casts (0) /lpf Urine Opiates Screen (Neg) Ur Methadone, Qual (Neg) Urine Barbiturates (Neg) Ur Phencyclidine (PCP) (Neg) U Amphetamin/Meth Scrn (Neg) MDMA (Ecstasy) Screen (Neg) U Benzodiazepines Scrn (Neg) Ur Cocaine Metabolite (Neg) U Marijuana (THC) Screen (Neg) U Marijuana THC Carboxy Pending Drug Screen Comment Pending 03/13/21 03/13/21 03/13/21 Range/Units 10:25 10:25 06:40 WBC (4.8-10.8) K/uL RBC (4.2-5.4) M/uL Hgb (12.0-16.0) g/dL Hct (37-47) % MCV (80-100) fL MCH (25-34) pg MCHC (32-36) g/dL RDW Std Deviation (36.4-46.3) fL RDW Coeff of Tatiana (11.5-14.5) % Plt Count (130-400) K/uL MPV (7.4-10.4) fL PT 10.0 (9.0-12.0) Seconds INR 1.0 (0.9-1.1) Sodium (136-145) mmol/L Potassium (3.5-5.1) mmol/L Chloride (98-107) mmol/L Carbon Dioxide (21-32) mmol/L Anion Gap (3-11) BUN (7-18) mg/dl Creatinine (0.6-1.2) mg/dl Est Cr Clr Drug Dosing ml/min Est GFR ( Amer) ml/min Est GFR (Non-Af Amer) ml/min BUN/Creatinine Ratio (10-20) Glucose (70-99) mg/dl Calcium (8.5-10.1) mg/dl Phosphorus (2.5-4.9) mg/dl Magnesium (1.8-2.4) mg/dl Total Bilirubin (0.2-1) mg/dl AST (15-37) U/L ALT (12-78) U/L Alkaline Phosphatase (45-117) U/L Total Protein (6.4-8.2) gm/dl Albumin (3.4-5.0) gm/dl Globulin (2.5-4.0) gm/dl Albumin/Globulin Ratio (0.9-2) Lipase (73-393) U/L Urine Color [place] Urine Appearance Cloudy A (Clear) Urine pH 6.0 (4.5-7.5) Ur Specific [place] 1.021 (1.000-1.030) Urine Protein 2+ H (Negative) Urine Glucose (UA) Negative (Negative) Urine Ketones Trace H (Negative) Urine Blood Trace H (Negative) Urine Nitrite Positive A (Negative) Urine Bilirubin 1+ H (Negative) Urine Urobilinogen Negative (Negative) Ur Leukocyte Esterase 2+ H (Negative) Urine WBC (Auto) >30 H (0-5) /hpf Urine RBC (Auto) 0-4 (0-4) /hpf U Hyaline Cast (Auto) 10-30 H (0-5) /lpf U Epithel Cells (Auto) >30 H (0-5) /lpf Urine Bacteria (Auto) 1+ H (Negative) Granular Casts 1-5 H (0) /lpf Urine Opiates Screen Neg (Neg) Ur Methadone, Qual Neg (Neg) Urine Barbiturates Neg (Neg) Ur Phencyclidine (PCP) Neg (Neg) U Amphetamin/Meth Scrn Neg (Neg) MDMA (Ecstasy) Screen Neg (Neg) U Benzodiazepines Scrn Neg (Neg) Ur Cocaine Metabolite Neg (Neg) U Marijuana (THC) Screen Pos H (Neg) U Marijuana THC Carboxy Drug Screen Comment
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
--- NOTE | 2021-03-14 13:03 | Hospitalist Progress Note ---
Date of Service March 14, 2021 Assessment & Plan (1) Alcohol withdrawal: Plan: -Patient presenting from home with reports of alcohol withdrawal, vomiting -Longstanding history of alcohol abuse with periods of sobriety and binge drinking -Continue alcohol withdrawal protocol with gabapentin and IV Ativan -Thiamine, folic acid -Mental health consult. Patient reports she has been admitted to rehab previously. Las ttime was back in June 2020. Patient is interested in rehab. (2) Alcoholic pancreatitis: Plan: -Lipase 1500, CT ABD/pelvis consistent with mild acute pancreatitis -Continue IV fluids. Sips and chips for now. Start on clear liquid diet if patient tolerates. (3) GI bleed: Plan: -Patient reporting hematemesis and black stools -Hgb at 15.8 on admission, today at 11.7. Small component of dilution as well. Appreciate gastroenterology input. No further episodes of bleeding. Continue with sips and chips. Clear liquid diet if patient tolerates. Continue with PPI gtt. Continue CBC twice daily. (4) Elevated LFTs: Plan: -T bili 1.2>>1.5, AST 199>>291, ALT 160>>155, alk phos 64>>43 -Likely due to underlying alcohol use. Continue monitor daily LFTs. (5) Hypokalemia: Plan: resolved (6) Hypophosphatemia: Plan: resolved (7) Hypomagnesemia: Plan: -Replace, follow electrolytes (8) Abnormal finding on urinalysis: Plan: -UA suggest possible UTI. cultures negative thus far. d.c ceftriaxone. (9) Closed right ankle fracture: Plan: -History of right distal fibular fracture on 02/05 -Following with Ortho, maintain boot. (10) DVT prophylaxis: Plan: -SCDs Admission and Anticipated Discharge Date Admission Date: March 13, 2021 Subjective Patient was awake, alert and oriented x3 this morning. Reports significant upper abdominal pain that radiates to the back. Reports feeling nauseous but no vomiting. Denies any headache, dizziness, tremors, hallucinations, chest pain, or dysuria. Reports she does feel hungry. Review of Systems Review of Systems: All systems reviewed & are unremarkable except as noted in HPI & below Physical Exam Physical Exam: General: A&Ox3 HENT: NCAT, MMM, EOMI Eyes: PERRLA Neck: Supple, normal range of motion CVS: normal rate and rhythm Resp: b/l good breath sounds Abdomen: Soft, ND/NT, +BS Extremities: Right foot boot in place Neuro: face symmetric, , no focal deficit Skin: warm and dry, no rashes/lesions/errythema MSK: normal ROM, no joint swelling/erythema Results & Data Results & Data ([facility]) Vital Signs (Past 12 Hours) Vital Signs Temp Pulse Resp BP Pulse Ox 03/14/21 10:49 36.6 C 108 H 19 124/80 94 03/14/21 07:17 36.7 C 114 H 20 123/82 94 03/14/21 03:27 36.9 C 110 H 18 120/80 96 (1) Alcohol withdrawal Complication of substance-induced condition: with delirium Qualified Code(s): F10.231 - Alcohol dependence with withdrawal delirium (2) Alcoholic pancreatitis Acute pancreatitis complication: unspecified Chronicity: acute Qualified Code(s): K85.20 - Alcohol induced acute pancreatitis without necrosis or infection
[2021-03-14] MEDS: NICOTINE 14 MG/24 HR PATCH TD SCH (14:05)
[2021-03-14] MEDS: LORazepam 2 MG/4 ML VIAL IV PRN (19:26)
[2021-03-14] MEDS: cefTRIAXone SODIUM 2,000 MG in DEXTROSE 5% 50 ML IV SCH (22:16)
[2021-03-15] MEDS: LORazepam 1 MG/2 ML VIAL IV PRN ×5 (00:16→21:40)
[2021-03-15] MEDS: PANTOprazole 40 MG in DEXTROSE 5% 100 ML IV SCH ×5 (00:22→20:46)
[2021-03-15] MEDS: POTASSIUM CHLORIDE 20 MEQ in LACTATED RINGER'S 1,000 ML IV SCH ×5 (00:54→21:26)
[2021-03-15] MEDS: ACETAMINOPHEN 325 MG TAB PO PRN ×2 (02:04→07:34)
[2021-03-15] MEDS: LORazepam 2 MG/4 ML VIAL IV PRN ×3 (03:34→09:38)
[2021-03-15] MEDS: oxyCODONE HCL IR 5 MG TAB (IMMEDIATE RELEASE) PO PRN ×5 (03:34→21:40)
[2021-03-15] MEDS: GABAPENTIN 600 MG TAB PO SCH ×2 (06:23→20:04)
[2021-03-15 06:25] LABS: Pregnancy Test, Urine Negative (Negative)
[2021-03-15 06:44] LABS: Hemoglobin 11.9 g/dL (12.0-16.0); Mean Corpuscular Hemoglobin 30.2 pg (25-34); Mean Corpuscular Hgb Conc 33.1 g/dL (32-36); Mean Corpuscular Volume 91.4 fL (80-100); RDW Coefficient of Variation 13.2 % (11.5-14.5); RDW Standard Deviation 44.2 fL (36.4-46.3); Red Blood Count 3.94 M/uL (4.2-5.4); White Blood Count 4.88 K/uL (4.8-10.8)
[2021-03-15 06:50] LABS: Prothrombin Time 10.1 Seconds (9.0-12.0)
[2021-03-15 07:07] LABS: Mean Platelet Volume 10.9 fL (7.4-10.4); Platelet Count 94 K/uL (130-400); Platelet Estimate Decreased (Normal)
[2021-03-15 07:12] LABS: Alanine Aminotransferase 293 U/L (12-78); Albumin Level 2.9 gm/dl (3.4-5.0); Aspartate Aminotransferase 548 U/L (15-37); BUN Creatinine Ratio 7.6 (10-20); Blood Urea Nitrogen 4 mg/dl (7-18); Calcium 8.4 mg/dl (8.5-10.1); Carbon Dioxide 26 mmol/L (21-32); Chloride 106 mmol/L (98-107); Creatinine Clr Calc Pharmacy 179.2 ml/min; Est GFR (African American) > 150.0 ml/min; Est GFR (Non-African American) 132.5 ml/min; Glucose 73 mg/dl (70-99); Magnesium 1.6 mg/dl (1.8-2.4); Potassium 3.7 mmol/L (3.5-5.1); Sodium 138 mmol/L (136-145)
[2021-03-15 07:20] LABS: Alkaline Phosphatase 47 U/L (45-117); Bilirubin,Total 0.7 mg/dl (0.2-1); Total Protein 5.9 gm/dl (6.4-8.2)
[2021-03-15] MEDS: NICOTINE 14 MG/24 HR PATCH TD SCH (07:39)
[2021-03-15] MEDS: FOLIC ACID 1 MG TAB PO SCH (07:39)
[2021-03-15] MEDS: THIAMINE HCL 100 MG TAB PO SCH (07:40)
--- NOTE | 2021-03-15 10:18 | Hospitalist Progress Note ---
Date of Service March 15, 2021 Assessment & Plan (1) Alcohol withdrawal: Plan: -Patient presenting from home with reports of alcohol withdrawal, vomiting -Longstanding history of alcohol abuse with periods of sobriety and binge drinking -Continue alcohol withdrawal protocol with gabapentin and IV Ativan -Thiamine, folic acid -Mental health consult. Patient reports she has been admitted to rehab previously. Las ttime was back in June 2020. Patient is interested in rehab. (2) Alcoholic pancreatitis: Plan: -Lipase 1500, CT ABD/pelvis consistent with mild acute pancreatitis -Continue IV fluids. Sips and chips for now. Start on clear liquid diet if patient tolerates. (3) GI bleed: Plan: -Patient reporting hematemesis and black stools -Hgb at 15.8 on admission, current 11.9 (but stable from yesterday). Some component of dilution as well. Appreciate Gastroenterology input. No further episodes of bleeding. Continue with sips and chips. Clear liquid diet if patient tolerates. Continue with PPI gtt. Continue to monitor CBC closely (4) Elevated LFTs: Plan: EtOH hepatitis -T bili 1.2>>1.5, AST 199>>291> 500s, ALT 160>>155> 293, alk phos 64>>43 -Likely due to underlying alcohol use. Continue monitor daily LFTs. - GI consulted (5) Hypokalemia: Plan: resolved (6) Hypophosphatemia: Plan: resolved (7) Hypomagnesemia: Plan: -Replace, follow electrolytes (8) Abnormal finding on urinalysis: Plan: -UA suggest possible UTI. cont, ceftriaxone. Follow cultx (9) Closed right ankle fracture: Plan: -History of right distal fibular fracture on 02/05 -Following with Ortho, maintain boot. (10) DVT prophylaxis: Plan: -SCDs Admission and Anticipated Discharge Date Admission Date: March 13, 2021 Subjective Pt seen in follow up of etoh withdrawal, RUQ abd. pain Laying in bed in NAD reports visual hallucinations, requiring ativan no chest pain, shortness of breath, fever, chills Review of Systems Review of Systems: All systems reviewed & are unremarkable except as noted in Subjective Physical Exam Physical Exam: General: A&Ox3, young F in NAD HEENT: NCAT, MMM, EOMI, PERRL Neck: Supple, normal range of motion CVS: + tachycardic, HR 100s Resp: b/l good breath sounds Abdomen: Soft, +BS, tender to palp at RUQ and RLQ Extremities: Right foot boot in place Neuro: face symmetric, speech fluent, moves extremities Skin: warm and dry, no rashes/lesions/erythema MSK: normal ROM, R LE as above Results & Data Results & Data ([facility]) Vital Signs (Past 12 Hours) Vital Signs Temp Pulse Pulse Resp BP Pulse Ox 03/15/21 07:54 101 H 03/15/21 06:06 36.4 C L 105 H 20 125/88 03/15/21 04:05 36.8 C 100 H 18 117/78 97 03/15/21 03:36 104 H 03/15/21 02:00 36.9 C 112 H 12 124/86 99 03/15/21 00:06 36.8 C 113 H 19 113/70 96 03/14/21 22:28 36.3 C L 108 H 16 137/94 99 Laboratory Results 03/15/21 03/15/21 03/15/21 Range/Units 06:16 06:16 06:16 WBC 4.88 (4.8-10.8) K/uL RBC 3.94 L (4.2-5.4) M/uL Hgb 11.9 L (12.0-16.0) g/dL Hct 36.0 L (37-47) % MCV 91.4 (80-100) fL MCH 30.2 (25-34) pg MCHC 33.1 (32-36) g/dL RDW Std Deviation 44.2 (36.4-46.3) fL RDW Coeff of Tatiana 13.2 (11.5-14.5) % Plt Count 94 L (130-400) K/uL MPV 10.9 H (7.4-10.4) fL Platelet Estimate Decreased L (Normal) PT 10.1 (9.0-12.0) Seconds INR 1.0 (0.9-1.1) Sodium 138 (136-145) mmol/L Potassium 3.7 (3.5-5.1) mmol/L Chloride 106 (98-107) mmol/L Carbon Dioxide 26 (21-32) mmol/L Anion Gap 6.0 (3-11) BUN 4 L (7-18) mg/dl Creatinine 0.47 L (0.6-1.2) mg/dl Est Cr Clr Drug Dosing 179.2 ml/min Est GFR ( Amer) > 150.0 ml/min Est GFR (Non-Af Amer) 132.5 ml/min BUN/Creatinine Ratio 7.6 L (10-20) Glucose 73 (70-99) mg/dl Calcium 8.4 L (8.5-10.1) mg/dl Phosphorus 4.0 (2.5-4.9) mg/dl Magnesium 1.6 L (1.8-2.4) mg/dl Total Bilirubin 0.7 D (0.2-1) mg/dl AST 548 H (15-37) U/L ALT 293 H (12-78) U/L Alkaline Phosphatase 47 (45-117) U/L Total Protein 5.9 L (6.4-8.2) gm/dl Albumin 2.9 L (3.4-5.0) gm/dl Globulin 3.0 (2.5-4.0) gm/dl Albumin/Globulin Ratio 1.0 (0.9-2) Urine Test (Negative) 03/15/21 Range/Units 06:10 WBC (4.8-10.8) K/uL RBC (4.2-5.4) M/uL Hgb (12.0-16.0) g/dL Hct (37-47) % MCV (80-100) fL MCH (25-34) pg MCHC (32-36) g/dL RDW Std Deviation (36.4-46.3) fL RDW Coeff of Tatiana (11.5-14.5) % Plt Count (130-400) K/uL MPV (7.4-10.4) fL Platelet Estimate (Normal) PT (9.0-12.0) Seconds INR (0.9-1.1) Sodium (136-145) mmol/L Potassium (3.5-5.1) mmol/L Chloride (98-107) mmol/L Carbon Dioxide (21-32) mmol/L Anion Gap (3-11) BUN (7-18) mg/dl Creatinine (0.6-1.2) mg/dl Est Cr Clr Drug Dosing ml/min Est GFR ( Amer) ml/min Est GFR (Non-Af Amer) ml/min BUN/Creatinine Ratio (10-20) Glucose (70-99) mg/dl Calcium (8.5-10.1) mg/dl Phosphorus (2.5-4.9) mg/dl Magnesium (1.8-2.4) mg/dl Total Bilirubin (0.2-1) mg/dl AST (15-37) U/L ALT (12-78) U/L Alkaline Phosphatase (45-117) U/L Total Protein (6.4-8.2) gm/dl Albumin (3.4-5.0) gm/dl Globulin (2.5-4.0) gm/dl Albumin/Globulin Ratio (0.9-2) Urine Test Negative (Negative) Medications Administered Current Inpatient Medications Acetaminophen (Acetaminophen 325 Mg Tab) 650 mg PO Q4H PRN PRN Reason: Pain or Fever Stop: 04/12/21 13:03 Last Admin: 03/15/21 07:34 Dose: 650 mg Documented by: Folic Acid (Folic Acid 1 Mg Tab) 1 mg PO QAM [facility] Stop: 04/12/21 13:03 Last Admin: 03/15/21 07:39 Dose: 1 mg Documented by: Gabapentin (Gabapentin 600 Mg Tab) 600 mg PO Q12H [facility] Stop: 03/16/21 06:01 Gabapentin (Gabapentin 600 Mg Tab) 600 mg PO Q24H [facility] Stop: 03/17/21 06:01 Pantoprazole Sodium 40 mg/ (Dextrose) 100 mls @ 20 mls/hr IV Q5H [facility] Stop: 04/12/21 13:14 Last Admin: 03/15/21 05:27 Dose: 8 mg/hr, 20 mls/hr Documented by: Lorazepam (Ativan) 1 mg in 2 mls @ 2 mls/min IV UD PRN; Protocol PRN Reason: EtOH Withdrawl AWSS Score 6,7 Stop: 04/12/21 13:03 Last Admin: 03/15/21 02:03 Dose: 2 mls/min Documented by: Lorazepam (Ativan) 2 mg in 4 mls @ 4 mls/min IV UD PRN; Protocol PRN Reason: EtOH Withdrawl AWSS Score 8,9 Stop: 04/12/21 13:03 Last Admin: 03/15/21 09:38 Dose: 4 mls/min Documented by: Lorazepam (Ativan) 3 mg in 6 mls @ 4 mls/min IV ONCE PRN; Protocol PRN Reason: EtOH Withdrawl AWSS Score >=10 Stop: 04/12/21 13:03 Potassium Chloride 20 meq/ (Lactated Ringer's) 1,010 mls @ 200 mls/hr IV .Q5H3M [facility] Stop: 04/12/21 13:29 Last Admin: 03/15/21 06:06 Dose: 200 mls/hr Documented by: Ceftriaxone Sodium 2,000 mg/ (Dextrose) 70 mls @ 140 mls/hr IV Q24H [facility]; Protocol Stop: 03/19/21 21:29 Last Infusion: 03/14/21 22:57 Dose: Infused Documented by: Miscellaneous (Remove Nicoderm Patch) 1 ea N/A DAILY@0859 [facility] Stop: 04/14/21 08:58 Last Admin: 03/14/21 22:53 Dose: 1 ea Documented by: Nicotine (Nicotine 14 Mg/24 Hr Patch) 14 mg TD [facility] Stop: 04/13/21 13:59 Last Admin: 03/15/21 07:39 Dose: 14 mg Documented by: Oxycodone HCl (Oxycodone Hcl Ir 5 Mg Tab (Immediate Release)) 5 mg PO Q4H PRN PRN Reason: Pain Stop: 03/29/21 03:00 Last Admin: 03/15/21 07:34 Dose: 5 mg Documented by: Thiamine HCl (Thiamine Hcl 100 Mg Tab) 100 mg PO [facility] Stop: 04/12/21 13:03 Last Admin: 03/15/21 07:40 Dose: 100 mg Documented by: (1) Alcohol withdrawal Complication of substance-induced condition: with delirium Qualified Code(s): F10.231 - Alcohol dependence with withdrawal delirium (2) Alcoholic pancreatitis Acute pancreatitis complication: unspecified Chronicity: acute Qualified Code(s): K85.20 - Alcohol induced acute pancreatitis without necrosis or infection
[2021-03-15] MEDS ORDERED: MAGNESIUM SULFATE / D5W 1 GM/100 ML BAG IV ONE (10:30)
[2021-03-15] MEDS: cefTRIAXone SODIUM 2,000 MG in DEXTROSE 5% 50 ML IV SCH (21:26)
[2021-03-15 22:06] LABS: Marijuana Quant, GCMS Urine 50 ng/mL (<5)
[2021-03-16] MEDS: PANTOprazole 40 MG in DEXTROSE 5% 100 ML IV SCH ×3 (01:54→11:57)
[2021-03-16] MEDS: oxyCODONE HCL IR 5 MG TAB (IMMEDIATE RELEASE) PO PRN ×5 (01:54→20:05)
[2021-03-16] MEDS: POTASSIUM CHLORIDE 20 MEQ in LACTATED RINGER'S 1,000 ML IV SCH ×4 (03:49→23:31)
[2021-03-16] MEDS ORDERED: LORazepam 0.5 MG TAB PO STA (05:11)
[2021-03-16] MEDS: GABAPENTIN 600 MG TAB PO SCH (05:32)
[2021-03-16 05:46] LABS: Hemoglobin 12.6 g/dL (12.0-16.0); Mean Corpuscular Hemoglobin 30.3 pg (25-34); Mean Corpuscular Hgb Conc 32.3 g/dL (32-36); Mean Corpuscular Volume 93.8 fL (80-100); RDW Coefficient of Variation 13.2 % (11.5-14.5); RDW Standard Deviation 45.2 fL (36.4-46.3); Red Blood Count 4.16 M/uL (4.2-5.4); White Blood Count 4.77 K/uL (4.8-10.8)
[2021-03-16 05:47] LABS: Mean Platelet Volume 10.9 fL (7.4-10.4); Platelet Count 90 K/uL (130-400)
[2021-03-16 05:50] LABS: Prothrombin Time 10.2 Seconds (9.0-12.0)
[2021-03-16 06:21] LABS: BUN Creatinine Ratio 3.9 (10-20); Calcium 8.8 mg/dl (8.5-10.1); Creatinine Clr Calc Pharmacy 129.5 ml/min; Est GFR (African American) 138.1 ml/min; Est GFR (Non-African American) 119.1 ml/min; Magnesium 1.4 mg/dl (1.8-2.4); Potassium 4.1 mmol/L (3.5-5.1)
[2021-03-16 06:37] LABS: Bilirubin,Total 0.5 mg/dl (0.2-1); Globulin 3.1 gm/dl (2.5-4.0); Phosphorus 4.9 mg/dl (2.5-4.9); Total Protein 6.1 gm/dl (6.4-8.2)
--- NOTE | 2021-03-16 08:30 | Hospitalist Progress Note ---
Date of Service March 16, 2021 Assessment & Plan (1) Alcohol withdrawal: Plan: -Patient presenting from home with reports of alcohol withdrawal, vomiting -Longstanding history of alcohol abuse with periods of sobriety and binge drinking -Continue alcohol withdrawal protocol with gabapentin and IV Ativan -Thiamine, folic acid -Mental health consult. Patient reports she has been admitted to rehab previously. Las time was back in June 2020. Patient is interested in rehab. (2) Alcoholic pancreatitis: Plan: -Lipase 1500, CT ABD/pelvis consistent with mild acute pancreatitis -Continue IV fluids. Sips and chips initially. Then on clear liquid diet. 03/16 -patient had regular food, reports feeling well after eating (3) GI bleed: Plan: -Patient reporting hematemesis and black stools -Hgb at 15.8 on admission, current 12.6 (improved from 11.9 yesterday). Some component of dilution as well. Appreciate Gastroenterology input. No further episodes of bleeding. Initially sips and chips only then clear liquid diet. Now tolerates regular diet. Continued with PPI gtt. Now IV BID Continue to monitor CBC closely (4) Elevated LFTs: Plan: EtOH hepatitis -T bili 1.2>>1.5, AST 199>>291> 500s, ALT 160>>155> 293, alk phos 64>>43 AST down to 380s (03/16) ALT down to 280s (03/16), Tbili 0.5 -Likely due to underlying alcohol use. Continue monitor daily LFTs. - GI consulted (5) Hypokalemia: Plan: resolved (6) Hypophosphatemia: Plan: resolved (7) Hypomagnesemia: Plan: -Replace, follow electrolytes (8) Abnormal finding on urinalysis: Plan: -UA suggest possible UTI. cont, ceftriaxone. Follow cultx (9) Closed right ankle fracture: Plan: -History of right distal fibular fracture on 02/05 -Following with Ortho, maintain boot. (10) DVT prophylaxis: Plan: -SCDs Admission and Anticipated Discharge Date Admission Date: March 13, 2021 Subjective Pt seen in follow up of etoh withdrawal, RUQ abd. pain Sitting up in bed, in NAD No chest pain, shortness of breath, fever, chills Had regular diet today, feels much better says that it felt good to eat finally No nausea after eating no abdominal pain, still has some right upper quadrant mild tenderness, seems improved Review of Systems Review of Systems: All systems reviewed & are unremarkable except as noted in Subjective Physical Exam Physical Exam: General: A&Ox3, young F in NAD HEENT: NCAT, MMM, EOMI, PERRL Neck: Supple, normal range of motion CVS: + tachycardic, HR 100s Resp: b/l good breath sounds Abdomen: Soft, +BS, mildly tender to palp at RUQ (improved0 Extremities: Right foot boot in place Neuro: face symmetric, speech fluent, moves extremities Skin: warm and dry, no rashes/lesions/erythema MSK: normal ROM, R LE as above Results & Data Results & Data ([facility]) Vital Signs (Past 12 Hours) Vital Signs Temp Pulse Pulse Resp BP Pulse Ox 03/16/21 07:40 36.7 C 110 H 20 144/89 H 95 03/16/21 07:32 113 H 03/16/21 03:44 36.9 C 107 H 20 128/92 96 03/15/21 23:20 36.9 C 78 17 115/80 97 03/15/21 23:04 96 H Laboratory Results 03/16/21 03/16/21 03/16/21 Range/Units 05:30 05:30 05:30 WBC 4.77 L (4.8-10.8) K/uL RBC 4.16 L (4.2-5.4) M/uL Hgb 12.6 (12.0-16.0) g/dL Hct 39.0 (37-47) % MCV 93.8 (80-100) fL MCH 30.3 (25-34) pg MCHC 32.3 (32-36) g/dL RDW Std Deviation 45.2 (36.4-46.3) fL RDW Coeff of Tatiana 13.2 (11.5-14.5) % Plt Count 90 L (130-400) K/uL MPV 10.9 H (7.4-10.4) fL PT 10.2 (9.0-12.0) Seconds INR 1.0 (0.9-1.1) Sodium 137 (136-145) mmol/L Potassium 4.1 (3.5-5.1) mmol/L Chloride 102 (98-107) mmol/L Carbon Dioxide 30 (21-32) mmol/L Anion Gap 5.0 (3-11) BUN 3 L (7-18) mg/dl Creatinine 0.65 (0.6-1.2) mg/dl Est Cr Clr Drug Dosing 129.5 ml/min Est GFR ( Amer) 138.1 ml/min Est GFR (Non-Af Amer) 119.1 ml/min BUN/Creatinine Ratio 3.9 L (10-20) Glucose 83 (70-99) mg/dl Calcium 8.8 (8.5-10.1) mg/dl Phosphorus 4.9 (2.5-4.9) mg/dl Magnesium 1.4 L (1.8-2.4) mg/dl Total Bilirubin 0.5 (0.2-1) mg/dl AST 383 H (15-37) U/L ALT 281 H (12-78) U/L Alkaline Phosphatase 53 (45-117) U/L Total Protein 6.1 L (6.4-8.2) gm/dl Albumin 3.0 L (3.4-5.0) gm/dl Globulin 3.1 (2.5-4.0) gm/dl Albumin/Globulin Ratio 1.0 (0.9-2) U Marijuana THC Carboxy (<5) ng/mL Drug Screen Comment 03/13/21 Range/Units 10:25 WBC (4.8-10.8) K/uL RBC (4.2-5.4) M/uL Hgb (12.0-16.0) g/dL Hct (37-47) % MCV (80-100) fL MCH (25-34) pg MCHC (32-36) g/dL RDW Std Deviation (36.4-46.3) fL RDW Coeff of Tatiana (11.5-14.5) % Plt Count (130-400) K/uL MPV (7.4-10.4) fL PT (9.0-12.0) Seconds INR (0.9-1.1) Sodium (136-145) mmol/L Potassium (3.5-5.1) mmol/L Chloride (98-107) mmol/L Carbon Dioxide (21-32) mmol/L Anion Gap (3-11) BUN (7-18) mg/dl Creatinine (0.6-1.2) mg/dl Est Cr Clr Drug Dosing ml/min Est GFR ( Amer) ml/min Est GFR (Non-Af Amer) ml/min BUN/Creatinine Ratio (10-20) Glucose (70-99) mg/dl Calcium (8.5-10.1) mg/dl Phosphorus (2.5-4.9) mg/dl Magnesium (1.8-2.4) mg/dl Total Bilirubin (0.2-1) mg/dl AST (15-37) U/L ALT (12-78) U/L Alkaline Phosphatase (45-117) U/L Total Protein (6.4-8.2) gm/dl Albumin (3.4-5.0) gm/dl Globulin (2.5-4.0) gm/dl Albumin/Globulin Ratio (0.9-2) U Marijuana THC Carboxy 50 H (<5) ng/mL Drug Screen Comment SEE NOTE Medications Administered Current Inpatient Medications Acetaminophen (Acetaminophen 325 Mg Tab) 650 mg PO Q4H PRN PRN Reason: Pain or Fever Stop: 04/12/21 13:03 Last Admin: 03/15/21 07:34 Dose: 650 mg Documented by: Folic Acid (Folic Acid 1 Mg Tab) 1 mg PO QAM [facility] Stop: 04/12/21 13:03 Last Admin: 03/15/21 07:39 Dose: 1 mg Documented by: Gabapentin (Gabapentin 600 Mg Tab) 600 mg PO Q24H [facility] Stop: 03/17/21 06:01 Pantoprazole Sodium 40 mg/ (Dextrose) 100 mls @ 20 mls/hr IV Q5H [facility] Stop: 04/12/21 13:14 Last Admin: 03/16/21 07:12 Dose: 8 mg/hr, 20 mls/hr Documented by: Lorazepam (Ativan) 1 mg in 2 mls @ 2 mls/min IV UD PRN; Protocol PRN Reason: EtOH Withdrawl AWSS Score 6,7 Stop: 04/12/21 13:03 Last Admin: 03/15/21 21:40 Dose: 2 mls/min Documented by: Lorazepam (Ativan) 2 mg in 4 mls @ 4 mls/min IV UD PRN; Protocol PRN Reason: EtOH Withdrawl AWSS Score 8,9 Stop: 04/12/21 13:03 Last Admin: 03/15/21 09:38 Dose: 4 mls/min Documented by: Lorazepam (Ativan) 3 mg in 6 mls @ 4 mls/min IV ONCE PRN; Protocol PRN Reason: EtOH Withdrawl AWSS Score >=10 Stop: 04/12/21 13:03 Potassium Chloride 20 meq/ (Lactated Ringer's) 1,010 mls @ 150 mls/hr IV .Q6H44M [facility] Stop: 04/12/21 13:29 Last Admin: 03/16/21 03:49 Dose: 150 mls/hr Documented by: Ceftriaxone Sodium 2,000 mg/ (Dextrose) 70 mls @ 140 mls/hr IV Q24H [facility]; Protocol Stop: 03/19/21 21:29 Last Infusion: 03/15/21 22:03 Dose: Infused Documented by: Magnesium Sulfate/Dextrose (Magnesium Sulfate / D5w) 1 gm in 100 mls @ 50 mls/hr IV Q2H [facility] Stop: 03/16/21 10:23 Miscellaneous (Remove Nicoderm Patch) 1 ea N/A DAILY@0859 [facility] Stop: 04/14/21 08:58 Last Admin: 03/14/21 22:53 Dose: 1 ea Documented by: Nicotine (Nicotine 14 Mg/24 Hr Patch) 14 mg TD [facility] Stop: 04/13/21 13:59 Last Admin: 03/15/21 07:39 Dose: 14 mg Documented by: Oxycodone HCl (Oxycodone Hcl Ir 5 Mg Tab (Immediate Release)) 5 mg PO Q4H PRN PRN Reason: Pain Stop: 03/29/21 03:00 Last Admin: 03/16/21 06:16 Dose: 5 mg Documented by: Thiamine HCl (Thiamine Hcl 100 Mg Tab) 100 mg PO QAM [facility] Stop: 04/12/21 13:03 Last Admin: 03/15/21 07:40 Dose: 100 mg Documented by: (1) Alcohol withdrawal Complication of substance-induced condition: with delirium Qualified Code(s): F10.231 - Alcohol dependence with withdrawal delirium (2) Alcoholic pancreatitis Acute pancreatitis complication: unspecified Chronicity: acute Qualified Code(s): K85.20 - Alcohol induced acute pancreatitis without necrosis or infection
[2021-03-16] MEDS: FOLIC ACID 1 MG TAB PO SCH (08:47)
[2021-03-16] MEDS: THIAMINE HCL 100 MG TAB PO SCH (08:47)
[2021-03-16] MEDS: NICOTINE 14 MG/24 HR PATCH TD SCH (08:47)
[2021-03-16] MEDS: MAGNESIUM SULFATE / D5W 1 GM/100 ML BAG IV SCH ×2 (09:37→11:56)
[2021-03-16] MEDS: LORazepam 1 MG/2 ML VIAL IV PRN ×3 (09:41→17:28)
[2021-03-16] MEDS: PANTOprazole 40 MG in SYRINGE 0 ML IV SCH (20:07)
[2021-03-16] MEDS: LORazepam 2 MG/4 ML VIAL IV PRN ×2 (21:12→21:16)
[2021-03-16] MEDS: cefTRIAXone SODIUM 2,000 MG in DEXTROSE 5% 50 ML IV SCH (21:26)
[2021-03-17] MEDS: oxyCODONE HCL IR 5 MG TAB (IMMEDIATE RELEASE) PO PRN ×3 (00:11→08:01)
[2021-03-17] MEDS ORDERED: LORazepam 1 MG TAB PO STA ×2 (01:12→09:47)
[2021-03-17] MEDS: POTASSIUM CHLORIDE 20 MEQ in LACTATED RINGER'S 1,000 ML IV SCH (05:53)
[2021-03-17] MEDS ORDERED: GABAPENTIN 600 MG TAB PO SCH (06:00)
[2021-03-17] MEDS: LORazepam 1 MG/2 ML VIAL IV PRN (06:11)
--- NOTE | 2021-03-17 06:52 | Hospitalist Progress Note ---
Date of Service March 17, 2021 Assessment & Plan (1) Alcohol withdrawal: Plan: -Patient presenting from home with reports of alcohol withdrawal, vomiting -Longstanding history of alcohol abuse with periods of sobriety and binge drinking -Continued alcohol withdrawal protocol with gabapentin and IV Ativan -Thiamine, folic acid -Mental health consult. Patient reports she has been admitted to rehab previously. Las time was back in June 2020. Patient is interested in outpt rehab. (2) Alcoholic pancreatitis: Plan: -Lipase 1500, CT ABD/pelvis consistent with mild acute pancreatitis -Continued IV fluids. Sips and chips initially. Then on clear liquid diet. 03/16 -patient had regular food, reports feeling well after eating 03/17 - tolerating food, no incr. abd. pain (3) GI bleed: Plan: -Patient reporting hematemesis and black stools -Hgb at 15.8 on admission, current 12.6 (improved from 11.9 yesterday). Some component of dilution as well. Appreciate Gastroenterology input. No further episodes of bleeding. Initially sips and chips only then clear liquid diet. Now tolerates regular diet. Continued with PPI gtt. Then IV BID - will DC on PO PPI BID Continue to monitor CBC closely as outpt (4) Elevated LFTs: Plan: EtOH hepatitis -T bili 1.2>>1.5, AST 199>>291> 500s, ALT 160>>155> 293, alk phos 64>>43 AST down to 380s (03/16) ALT down to 280s (03/16), Tbili 0.5 AST, ALT down to 200s, T bili 0.4 (on 03/17) -Likely due to underlying alcohol use. Recommend to check LFTs as outpt. - GI consulted Patient history of HCV, would like to have treatment, follow-up with GI as outpatient (5) Hypokalemia: Plan: resolved (6) Hypophosphatemia: Plan: resolved (7) Hypomagnesemia: Plan: -Replace, follow electrolytes (8) Abnormal finding on urinalysis: Plan: -UA suggest possible UTI. cont, ceftriaxone. Urine cultx - mixed jamey - DC Abx (9) Closed right ankle fracture: Plan: -History of right distal fibular fracture on 02/05 -Following with Ortho, maintain boot. (10) DVT prophylaxis: Plan: -SCDs Admission and Anticipated Discharge Date Admission Date: March 13, 2021 Subjective Pt seen in follow up of etoh withdrawal, RUQ abd. pain Sitting up in bed, in NAD No chest pain, shortness of breath, fever, chills Started regular diet yesterday and tolerated without any difficulty, denies any abdominal pain, nausea vomiting She is anxious to be discharged as her boyfriend is being released today Reports that she has no intention of drinking again Eager to follow-up with GI as outpt and getting treated for hep C Review of Systems Review of Systems: All systems reviewed & are unremarkable except as noted in Subjective Physical Exam Physical Exam: General: A&Ox3, young F in NAD HEENT: NCAT, MMM, EOMI, PERRL Neck: Supple, normal range of motion CVS: + tachycardic, HR 90-100s Resp: b/l good breath sounds Abdomen: Soft, +BS, mildly tender to palp at RUQ (much improved0 Extremities: Right foot boot in place Neuro: Alert and oriented, answers questions appropriately, face symmetric, speech fluent, moves extremities Skin: warm and dry, no rashes/lesions/erythema MSK: normal ROM, R LE as above Results & Data Results & Data ([facility]) Vital Signs (Past 12 Hours) Vital Signs Temp Pulse Pulse Resp BP Pulse Ox 03/17/21 06:00 36.7 C 120 H 18 131/82 96 03/17/21 03:39 36.6 C 100 H 18 136/92 99 03/17/21 00:46 91 H 03/16/21 23:28 36.6 C 111 H 20 131/88 100 03/16/21 20:12 37.0 C 100 H 24 115/78 97 Laboratory Results 03/17/21 03/17/21 03/17/21 Range/Units 06:46 06:46 06:46 WBC 5.48 (4.8-10.8) K/uL RBC 4.04 L (4.2-5.4) M/uL Hgb 12.2 (12.0-16.0) g/dL Hct 37.8 (37-47) % MCV 93.6 (80-100) fL MCH 30.2 (25-34) pg MCHC 32.3 (32-36) g/dL RDW Std Deviation 45.4 (36.4-46.3) fL RDW Coeff of Tatiana 13.5 (11.5-14.5) % Plt Count 92 L (130-400) K/uL MPV 10.9 H (7.4-10.4) fL PT 9.4 (9.0-12.0) Seconds INR 0.9 (0.9-1.1) Sodium 140 (136-145) mmol/L Potassium 4.7 (3.5-5.1) mmol/L Chloride 106 (98-107) mmol/L Carbon Dioxide 29 (21-32) mmol/L Anion Gap 5.0 (3-11) BUN 3 L (7-18) mg/dl Creatinine 0.74 (0.6-1.2) mg/dl Est Cr Clr Drug Dosing 113.0 ml/min Est GFR ( Amer) 126.0 ml/min Est GFR (Non-Af Amer) 108.7 ml/min BUN/Creatinine Ratio 4.0 L (10-20) Glucose 82 (70-99) mg/dl Calcium 8.4 L (8.5-10.1) mg/dl Phosphorus 3.5 D (2.5-4.9) mg/dl Magnesium 2.0 (1.8-2.4) mg/dl Total Bilirubin 0.4 (0.2-1) mg/dl AST 217 H (15-37) U/L ALT 248 H (12-78) U/L Alkaline Phosphatase 66 (45-117) U/L Total Protein 6.4 (6.4-8.2) gm/dl Albumin 3.0 L (3.4-5.0) gm/dl Globulin 3.4 (2.5-4.0) gm/dl Albumin/Globulin Ratio 0.9 (0.9-2) Medications Administered Current Inpatient Medications Acetaminophen (Acetaminophen 325 Mg Tab) 650 mg PO Q4H PRN PRN Reason: Pain or Fever Stop: 04/12/21 13:03 Last Admin: 03/15/21 07:34 Dose: 650 mg Documented by: Folic Acid (Folic Acid 1 Mg Tab) [facility] Stop: 04/12/21 13:03 Last Admin: 03/16/21 08:47 Dose: 1 mg Documented by: Lorazepam (Ativan) 1 mg in 2 mls @ 2 mls/min IV UD PRN; Protocol PRN Reason: EtOH Withdrawl AWSS Score 6,7 Stop: 04/12/21 13:03 Last Admin: 03/17/21 06:11 Dose: 2 mls/min Documented by: Lorazepam (Ativan) 2 mg in 4 mls @ 4 mls/min IV UD PRN; Protocol PRN Reason: EtOH Withdrawl AWSS Score 8,9 Stop: 04/12/21 13:03 Last Admin: 03/16/21 21:16 Dose: 4 mls/min Documented by: Lorazepam (Ativan) 3 mg in 6 mls @ 4 mls/min IV ONCE PRN; Protocol PRN Reason: EtOH Withdrawl AWSS Score >=10 Stop: 04/12/21 13:03 Potassium Chloride 20 meq/ (Lactated Ringer's) 1,010 mls @ 150 mls/hr IV .Q6H44M [facility] Stop: 04/12/21 13:29 Last Admin: 03/17/21 05:53 Dose: 150 mls/hr Documented by: Ceftriaxone Sodium 2,000 mg/ (Dextrose) 70 mls @ 140 mls/hr IV Q24H [facility]; Protocol Stop: 03/19/21 21:29 Last Infusion: 03/16/21 22:00 Dose: Infused Documented by: Pantoprazole Sodium 40 mg/ (Syringe) 10 mls @ 5 mls/min IV BID [facility] Stop: 04/15/21 20:59 Last Admin: 03/16/21 20:07 Dose: 5 mls/min Documented by: Miscellaneous (Remove Nicoderm Patch) 1 ea N/A DAILY@0859 [facility] Stop: 04/14/21 08:58 Last Admin: 03/16/21 09:33 Dose: 1 ea Documented by: Nicotine (Nicotine 14 Mg/24 Hr Patch) 14 mg TD QAM [facility] Stop: 04/13/21 13:59 Last Admin: 03/16/21 08:47 Dose: 14 mg Documented by: Oxycodone HCl (Oxycodone Hcl Ir 5 Mg Tab (Immediate Release)) 5 mg PO Q4H PRN PRN Reason: Pain Stop: 03/29/21 03:00 Last Admin: 03/17/21 04:03 Dose: 5 mg Documented by: Thiamine HCl (Thiamine Hcl 100 Mg Tab) 100 mg PO QAM [facility] Stop: 04/12/21 13:03 Last Admin: 03/16/21 08:47 Dose: 100 mg Documented by: (1) Alcohol withdrawal Complication of substance-induced condition: with delirium Qualified Code(s): F10.231 - Alcohol dependence with withdrawal delirium (2) Alcoholic pancreatitis Acute pancreatitis complication: unspecified Chronicity: acute Qualified Code(s): K85.20 - Alcohol induced acute pancreatitis without necrosis or i nfection
[2021-03-17 07:09] LABS: Hematocrit (blood only) 37.8 % (37-47); Hemoglobin 12.2 g/dL (12.0-16.0); Mean Corpuscular Hemoglobin 30.2 pg (25-34); Mean Corpuscular Hgb Conc 32.3 g/dL (32-36); Mean Corpuscular Volume 93.6 fL (80-100); RDW Coefficient of Variation 13.5 % (11.5-14.5); RDW Standard Deviation 45.4 fL (36.4-46.3); Red Blood Count 4.04 M/uL (4.2-5.4); White Blood Count 5.48 K/uL (4.8-10.8)
[2021-03-17 07:24] LABS: INR 0.9 (0.9-1.1); Prothrombin Time 9.4 Seconds (9.0-12.0)
[2021-03-17 07:27] LABS: Mean Platelet Volume 10.9 fL (7.4-10.4); Platelet Count 92 K/uL (130-400)
[2021-03-17 07:44] LABS: Calcium 8.4 mg/dl (8.5-10.1); Est GFR (Non-African American) 108.7 ml/min; Potassium 4.7 mmol/L (3.5-5.1)
[2021-03-17] MEDS: LORazepam 2 MG/4 ML VIAL IV PRN (07:53)
[2021-03-17] MEDS: NICOTINE 14 MG/24 HR PATCH TD SCH (07:54)
[2021-03-17] MEDS: PANTOprazole 40 MG in SYRINGE 0 ML IV SCH (07:55)
[2021-03-17] MEDS: THIAMINE HCL 100 MG TAB PO SCH (07:55)
[2021-03-17] MEDS: FOLIC ACID 1 MG TAB PO SCH (07:55)
[2021-03-17 07:56] LABS: Albumin Globulin Ratio 0.9 (0.9-2); Bilirubin,Total 0.4 mg/dl (0.2-1); Globulin 3.4 gm/dl (2.5-4.0); Phosphorus 3.5 mg/dl (2.5-4.9); Total Protein 6.4 gm/dl (6.4-8.2)
--- NOTE | 2021-03-17 10:10 | Discharge Summary ---
Date of Service March 17, 2021 Admission HPI Per Admitting Provider 30-year-old female with PMH mild intermittent asthma, chronic hepatitis C, alcohol abuse, mood disorder, and other problems to below who presents to the ED for evaluation of alcohol withdrawal. Patient has a longstanding history of alcohol abuse with periods of sobriety and binge drinking. Patient reports she had been sober for the past 1 year however started drinking again 5 days ago. 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 She also reports a difficult relationship with her father. Over the past 5 days, patient reports she drank a bottle of cinnamon whiskey and several alcoholic sliders. Last drink was around 3 PM yesterday. Overnight, patient reports she developed persistent vomiting. She reports a small amount of hematemesis. She has had generalized abdominal pain. She also reports black stools. She has had a headache with episodes of diaphoresis and tremors. She denies chest pain and shortness of breath. No lightheadedness, dizziness, diaphoresis, syncopal events. She denies any other recent illnesses, fevers, chills. No urinary symptoms. In the ED, labs show several electrolyte abnormalities including K+ 2.8, Phos 1.9, MG +1.5. Elevated LFTs. Lipase 1500. UA suggestive of possible UTI. Alcohol level 84. CT ABD/pelvis shows mild acute pancreatitis. Patient was given IVF, IV famotidine, IV lorazepam 2 mg x 2 doses, banana bag, potassium and magnesium replacement. Admission Exam Per Admitting Provider Constitutional: WD/WN, vitals as above Eyes: PERRL, conjunctivae normal, anicteric sclerae ENMT: external ear and nose normal, oropharynx normal Respiratory: normal respiratory effort, lungs clear to auscultation Cardiovascular: Rate/Rhythm: regular rhythm and + tachycardic Vessels: normal peripheral pulses Extremities: no edema Gastrointestinal (Abdomen): Inspection/Auscultation: normal bowel sounds Percussion/Palpation: + abdomen tender (mild, RUQ) and abdomen soft; no hepatosplenomegaly Musculoskeletal: no cyanosis or clubbing, extremities motor strength 5/5 Skin: no rashes, warm and dry Neurologic: PERRL, EOMI, accommodation nl, no face palsy, no dysarthria Motor/Sensory: + tremor Psychiatric: Orientation: alert and oriented x 3 Affect: + anxious affect Principal Diagnosis Alcohol withdrawal, alcohol abuse Pancreatitis Elevated LFTs, alcohol hepatitis history of hep C Concern for GI bleed Anxiety, bipolar disorder Discharge Exam General: A&Ox3, young F in NAD HEENT: NCAT, MMM, EOMI, PERRL Neck: Supple, normal range of motion CVS: + tachycardic, HR 90-100s Resp: b/l good breath sounds Abdomen: Soft, +BS, mildly tender to palp at RUQ (much improved0 Extremities: Right foot boot in place Neuro: Alert and oriented, answers questions appropriately, face symmetric, speech fluent, moves extremities Skin: warm and dry, no rashes/lesions/erythema MSK: normal ROM, R LE as above Discharge Data Allergies Allergy/AdvReac Type Severity Reaction Status Date / Time apple Allergy Intermediate RAW Verified 03/13/21 06:55 APPLES--MOUTH SWELLS, ITCHY TONGUE, HIVES apricot Allergy Intermediate RAW Verified 03/13/21 06:55 APRICOTS--MOUTH SWELLS, ITCHY TONGUE, HIVES cat dander Allergy Intermediate MOUTH Verified 03/13/21 06:55 SWELLS, ITCHY TONGUE, HIVES Consultations 03/13/21 11:10 ED Decision to Admit Stat 03/13/21 13:04 Consult Gastroenterology Routine Consult Psychiatry Routine Ordered Studies 03/13/21 09:51 CT abd pelvis IV con only Stat IMPRESSION: 1. Findings suggest mild acute pancreatitis as clinically suspected. 2. The gland enhances homogeneously and there is no peripancreatic fluid collection. 3. Hepatomegaly and severe hepatic steatosis. 4. Additional findings in full report. Hospital Course (1) Alcohol withdrawal: -Patient presenting from home with reports of alcohol withdrawal, vomiting -Longstanding history of alcohol abuse with periods of sobriety and binge drinking -Continued alcohol withdrawal protocol with gabapentin and IV Ativan -Thiamine, folic acid -Mental health consult. Patient reports she has been admitted to rehab previously. Las time was back in June 2020. Patient is interested in outpt rehab. (2) Alcoholic pancreatitis: -Lipase 1500, CT ABD/pelvis consistent with mild acute pancreatitis -Continued IV fluids. Sips and chips initially. Then on clear liquid diet. 03/16 -patient had regular food, reports feeling well after eating 03/17 - tolerating food, no incr. abd. pain (3) GI bleed: -Patient reporting hematemesis and black stools -Hgb at 15.8 on admission, current 12.6 (improved from 11.9 yesterday). Some component of dilution as well. Appreciate Gastroenterology input. No further episodes of bleeding. Initially sips and chips only then clear liquid diet. Now tolerates regular diet. Continued with PPI gtt. Then IV BID - will DC on PO PPI BID Continue to monitor CBC closely as outpt (4) Elevated LFTs: EtOH hepatitis -T bili 1.2>>1.5, AST 199>>291> 500s, ALT 160>>155> 293, alk phos 64>>43 AST down to 380s (03/16) ALT down to 280s (03/16), Tbili 0.5 AST, ALT down to 200s, T bili 0.4 (on 03/17) -Likely due to underlying alcohol use. Recommend to check LFTs as outpt. - GI consulted Patient history of HCV, would like to have treatment, follow-up with GI as outpatient (5) Hypokalemia: resolved (6) Hypophosphatemia: resolved (7) Hypomagnesemia: -Replace, follow electrolytes (8) Abnormal finding on urinalysis: -UA suggest possible UTI. cont, ceftriaxone. Urine cultx - mixed jamey - DC Abx (9) Closed right ankle fracture: -History of right distal fibular fracture on 02/05 -Following with Ortho, maintain boot. Hx of anxiety, bipolar disorder -Seen by psychiatry while inpatient - Patient stopped her home medications about a month ago, psychiatry does not recommend to restart at this time as patient was withdrawing - patient is to follow-up with psychiatry as outpatient (10) DVT prophylaxis: -SCDs Total Time Total Time Spent Total Time Spent (In Minutes): 40 Discharge Plan Discharge Items Patient Disposition: Home - Self-Care Reason For Visit: ETOH WITHDRAWAL Discharge Diagnosis: Alcohol withdrawal, alcohol abuse Pancreatitis Elevated LFTs, alcohol hepatitis history of hep C Concern for GI bleed Anxiety, bipolar disorder Activity: Per Instructions section Non-emergency contact: Primary Care Provider and [employer] Call non-emergency contact if: you have any medication questions and your symptoms worsen Follow-up/Referrals: Evin Hill MD [Primary Care Provider] - (Date & Time 03/24/2021 10:40 AM Provider Evin Hill MD Department [facility] ) Diet: Low Fiber and Low Fat Addtl Attending Provider Instructions: Follow-up with your primary care doctor and senior quality analyst. The appointment with your primary care doctor was scheduled for March 24. You will be contacted about your gastroenterology appointment. To protect your stomach mucosa, take pantoprazole twice a day as prescribed. In addition, it is strongly recommended that you take vitamins, folic acid and thiamine as prescribed. It is crucial that you completely abstain from alcohol. It is also recommended that you quit smoking. Nicotine patch was sent to your pharmacy. Consider calling [employer] smoking cessation line. It is important that you follow-up with your psychiatrist and restart medications as recommended by your psychiatry team. It is recommended that you are treated for your hep C, make sure to follow-up with your senior quality analyst. Pending Studies at Discharge: No Stand-Alone Forms: My [facility] Panor[employer] Education, Smoking Cessation Medications and DC Order Prescriptions: New nicotine [Nicoderm CQ] 21 mg/24 hr patch 24 hour 1 patch transdermal DAILY Qty: 7 RF: 0 pantoprazole 40 mg Tablet,Delayed Release (Dr/Ec) 40 mg PO BID Qty: 60 RF: 0 folic acid 1 mg Tablet 1 mg PO QAM Qty: 30 RF: 0 thiamine HCl (vitamin B1) [Vitamin B-1] 100 mg Tablet 100 mg PO QAM Qty: 30 RF: 0 Discharge Orders: Discharge Order (Routine); Ordered 03/17/21 Ordered By: Bobby Alvarado Admission Data Admit Date/Time: 03/13/21 11:53 Attending Provider: Bobby Alvarado Admit Provider: Onesimo Ram Primary Care Provider: Evin Hill Other Providers: Onesimo Ram ; Priscila Costa ; Marielena Taylor ; Dr Beka ; Delmi Copeland ; Evin Del Toro Other Interventions: Discharge Summary Assessment (RN) Last Done: 03/17/21 10:04
[2021-03-17] MEDS ORDERED: PANTOprazole 40 MG TAB PO SCH (21:00)
== END 2021-03-17 12:13 | disposition home or self-care (01) | DRG 439 ==
LOC: ED 06:14 → SUATTDRO 11:53 → 2S 11:53